=== PATIENT | male | born 1970 | race Caucasian/White ===

== ENCOUNTER 2016-07-24 12:54 | Outpatient (CLI) ==
[2012-12-25 12:03] VITALS: BP 156/91; TEMP 98.8
[2016-03-23 18:59] VITALS: BMI 50.2
[2016-07-24 13:02] LABS: BASOPHILS # (AUTO) 0.1 K/uL (0-0.2); BASOPHILS % (AUTO) 1.2 % (0.0-3.0); EOSINOPHILS # (AUTO) 0.2 K/ul (0.0-0.7); EOSINOPHILS % (AUTO) 3.1 % (0.0-7.0); HEMATOCRIT 37.6 % (42.0-52.0); HEMOGLOBIN 13.1 g/dl (14.0-18.0); IMMATURE GRANULOCYTE % (AUTO) 0.4 % (0.0-5.0); LYMPHOCYTES # (AUTO) 1.7 K/uL (0.60-3.4); MEAN CORPUSCULAR HEMOGLOBIN 27.6 pg (27.0-31.0); MEAN CORPUSCULAR HGB CONC 34.8 (31.8-35.4); MEAN CORPUSCULAR VOLUME 79.2 fl (80.0-94.0); MONOCYTES # (AUTO) 0.6 K/uL (0.4-2.0); MONOCYTES % (AUTO) 8.2 (0-10); NEUTROPHILS # (AUTO) 4.7 K/ul (2.0-6.9); NEUTROPHILS % (AUTO) 64.1; PLATELET COUNT 227 10^3/uL (140-440); RED BLOOD COUNT 4.75 10^6/ul (4.70-6.10); WHITE BLOOD COUNT 7.35 K/ul (4.2-10.2)
[2016-07-24 13:34] LABS: ALBUMIN 3.9 g/dL (3.4-5.0); ALBUMIN/GLOBULIN RATIO 1.18; ANION GAP 13.4; BILIRUBIN,TOTAL 0.46 mg/dL (0.00-1.20); BUN/CREATININE RATIO 8.1; CALCIUM 9.8 mg/dL (8.2-10.2); CREATININE 0.74 mg/dL (0.60-1.10); POTASSIUM 4.4 mmol/L (3.5-5.1); TOTAL PROTEIN 7.2 g/dL (6.4-8.2)
== END 2016-07-24 12:55 | disposition home or self-care (01) ==
LOC: LAB 12:54
PROVIDERS: ATTEND Nurse Practitioner Family
DX: E78.5 Hyperlipidemia, unspecified (principal); J44.9 Chronic obstructive pulmonary disease, unspecified; I10 Essential (primary) hypertension
CPT/HCPCS: 36415; 80053; 80061; 84443; 85025

== ENCOUNTER 2016-07-30 08:53 | Outpatient (CLI) ==
[2012-12-25 12:03] VITALS: BP 156/91; TEMP 98.8
[2016-03-23 18:59] VITALS: BMI 50.2
--- NOTE | 2016-07-30 10:04 | CT ---
EXAM: CT chest with contrast. HISTORY: Tobacco use. Previous right thoracotomy. COMPARISON: 10/20/2015. TECHNIQUE: Multiple axial images of the chest were obtained following intravenous administration of 75 mL of Omnipaque-300, low osmolar. Images were reformatted in the sagittal and coronal planes. FINDINGS: Nonenlarged mediastinal lymph nodes are present, some of which are calcified. No lymphad enopathy identified. Heart size is normal. There is no pericardial effusion. Calcified granulomatous changes are present. Stable right middle lobe scarring noted with multiple old right-sided rib fractures and postsurgical changes of the lateral sixth rib. Linear subpleural density in the left upper lobe on axial image 27 is stable. Left lung is otherwise clear. No pleur al effusion or pneumothorax detected. Limited images of the upper abdomen demonstrate bilateral renal cysts. Degenerative changes present throughout the spine. IMPRESSION: No acute abnormality of the chest. Stable chronic changes of the right thorax.
== END 2016-07-30 08:54 | disposition home or self-care (01) ==
LOC: RAD 08:53
PROVIDERS: ATTEND Nurse Practitioner Family
DX: E87.1 Hypo-osmolality and hyponatremia (principal); Z72.0 Tobacco use
CPT/HCPCS: 36415

== ENCOUNTER 2016-08-15 09:43 | Outpatient (CLI) ==
[2012-12-25 12:03] VITALS: BP 156/91; TEMP 98.8
[2016-03-23 18:59] VITALS: BMI 50.2
[2016-08-15 10:17] LABS: ANION GAP 13.3; BUN/CREATININE RATIO 10.34; CALCIUM 9.6 mg/dL (8.2-10.2); CREATININE 0.87 mg/dL (0.60-1.10); POTASSIUM 4.3 mmol/L (3.5-5.1)
--- NOTE | 2016-08-15 10:40 | CT ---
EXAM: CT head without contrast. HISTORY: Dizziness. Hypo-osmolality. Hyponatremia. COMPARISON: 08/27/2013. TECHNIQUE: Multiple axial images of the brain were obtained from the skull base through the vertex without intravenous contrast. FINDINGS: There is no intracranial hemorrhage or extraaxial collection. The de la torre-white differentia tion is maintained without evidence for acute large vascular territory infarction. Chronic small ve ssel ischemic changes appear stable since prior examination. The cortical sulci and basal cisterns are well visualized. There is no hydrocephalus, mass effect, or midline shift. The paranasal sinus es and mastoid air cells are clear. The calvarium is intact. Disconjugate gaze noted. Since the p rior study, there has been no significant interval change. IMPRESSION: No acute intracranial abnormality.
== END 2016-08-15 09:44 | disposition home or self-care (01) ==
LOC: RAD 09:43
PROVIDERS: ATTEND Nurse Practitioner Family
DX: E87.1 Hypo-osmolality and hyponatremia (principal)
CPT/HCPCS: 36415; 80048

== ENCOUNTER 2016-09-17 12:43 | Inpatient (IN) ==
[2016-09-17 13:33] LABS: BASOPHILS # (AUTO) 0.1 K/uL (0-0.2); BASOPHILS % (AUTO) 0.5 % (0.0-3.0); EOSINOPHILS # (AUTO) 0.4 K/ul (0.0-0.7); EOSINOPHILS % (AUTO) 3.9 % (0.0-7.0); HEMATOCRIT 31.2 % (42.0-52.0); HEMOGLOBIN 10.7 g/dl (14.0-18.0); LYMPHOCYTES # (AUTO) 1.3 K/uL (0.60-3.4); LYMPHOCYTES % (AUTO) 12.5 (10.0-50.0); MEAN CORPUSCULAR HEMOGLOBIN 28.8 pg (27.0-31.0); MEAN CORPUSCULAR HGB CONC 34.3 (31.8-35.4); MEAN CORPUSCULAR VOLUME 83.9 fl (80.0-94.0); MONOCYTES # (AUTO) 1.3 K/uL (0.4-2.0); MONOCYTES % (AUTO) 12.5 (0-10); NEUTROPHILS # (AUTO) 7.3 K/ul (2.0-6.9); NEUTROPHILS % (AUTO) 69.6; PLATELET COUNT 216 10^3/uL (140-440); RED BLOOD COUNT 3.72 10^6/ul (4.70-6.10); WHITE BLOOD COUNT 10.44 K/ul (4.2-10.2)
[2016-09-17] MEDS ORDERED: OXYCODONE HCL PO PRN (13:42)
[2016-09-17] MEDS ORDERED: POLYETHYLENE GLYCOL PO PRN (13:42)
[2016-09-17] MEDS ORDERED: NON-FORMULARY MEDICATION (Albuterol Sulfate [Proair Respiclick] 2 PUFF) IH PRN (13:42)
[2016-09-17] MEDS ORDERED: LASIX TAB PO PRN ×2 (13:42→16:49)
[2016-09-17] MEDS ORDERED: MYCOLOG TP PRN (13:42)
[2016-09-17 13:50] LABS: ALBUMIN 2.9 g/dL (3.4-5.0); ALBUMIN/GLOBULIN RATIO 0.74; ANION GAP 13.6; BILIRUBIN,TOTAL 0.66 mg/dL (0.00-1.20); BUN/CREATININE RATIO 19.51; CALCIUM 9.1 mg/dL (8.2-10.2); CREATININE 0.82 mg/dL (0.60-1.10); POTASSIUM 4.6 mmol/L (3.5-5.1); TOTAL PROTEIN 6.8 g/dL (6.4-8.2)
[2016-09-17] MEDS ORDERED: OXYCODONE PO PRN ×2 (14:13→15:27)
[2016-09-17] MEDS ORDERED: MIRALAX PO PRN (14:27)
[2016-09-17] MEDS ORDERED: NON-FORMULARY MEDICATION (Clonazepam [Clonazepam] 1 MG) PO SCH ×22 (15:00)
[2016-09-17 15:41] VITALS: BMI 51.6
[2016-09-17] MEDS: KLONOPIN PO SCH ×2 (15:50→20:43)
[2016-09-17] MEDS ORDERED: PROAIR HFA IH PRN (16:14)
[2016-09-17] MEDS: ASPIRIN EC PO SCH (17:55)
[2016-09-17] MEDS ORDERED: MILK OF MAGNESIA PO STA (18:13)
[2016-09-17] MEDS: TRILEPTAL PO SCH (20:44)
[2016-09-17] MEDS: SEROQUEL PO SCH (20:45)
[2016-09-17] MEDS ORDERED: OXCARBAZEPINE 900 MG PO SCH (21:00)
[2016-09-17] MEDS ORDERED: NON-FORMULARY MEDICATION (Quetiapine Fumarate [Seroquel] 600 MG) PO SCH (21:00)
[2016-09-17] MEDS ORDERED: NON-FORMULARY MEDICATION (Zolpidem Tartrate [Ambien] 10 MG) PO SCH (21:00)
[2016-09-17] MEDS ORDERED: NON-FORMULARY MEDICATION (Lisinopril [Zestril] 20 MG) PO SCH ×22 (21:00)
[2016-09-17] MEDS ORDERED: AMBIEN PO SCH (21:00)
[2016-09-17] MEDS: OXYCODONE PO PRN (21:18)
[2016-09-18] MEDS: OXYCODONE PO PRN ×4 (05:38→20:40)
[2016-09-18] MEDS ORDERED: DULCOLAX RC STA (08:56)
[2016-09-18] MEDS ORDERED: NON-FORMULARY MEDICATION (Simvastatin [Simvastatin] 20 MG) PO SCH ×22 (09:00)
[2016-09-18] MEDS ORDERED: TIOTROPIUM BROMIDE 2.5 MCG IH SCH (09:00)
[2016-09-18] MEDS ORDERED: NON-FORMULARY MEDICATION (Cholecalciferol (Vitamin D3) [Vitamin D3] 1,000 UNIT) PO SCH ×22 (09:00)
[2016-09-18] MEDS: TIOTROPIUM BROMIDE 5 MCG IH SCH (09:08)
[2016-09-18] MEDS: ATOMOXETINE HCL 80 MG PO SCH ×21 (09:08)
[2016-09-18] MEDS: VITAMIN D PO SCH (09:09)
[2016-09-18] MEDS: ULTRAM PO PRN (09:09)
[2016-09-18] MEDS: ZOCOR PO SCH (09:09)
[2016-09-18] MEDS: ASPIRIN EC PO SCH ×2 (09:10→17:52)
[2016-09-18] MEDS: COLACE PO SCH (09:10)
[2016-09-18] MEDS: ZESTRIL PO SCH ×2 (09:10→20:39)
[2016-09-18] MEDS: TRILEPTAL PO SCH ×2 (09:11→20:38)
--- NOTE | 2016-09-18 09:35 | RS.OTINEVL ---
Subjective - Patient information Date of Evaluation: 09/18/16 Date of Arrival on Unit: 09/17/16 Admitted From:: Facility Transfer Usual Living Arrangement: Alone Living Arrangement Comments: Lives in [address] which is one level. Home Environment: Apartment Medical History: Hypertension, COPD, Arthritis Medical History Comments:: History of back pain Surgical History: Knee Replacement Surgical History Comments:: R TKA Subjective Information/ Patient Comments:: "Oh that hurts so bad." "I did better than I thought I would." - Level of function Prior to this admission, the patient could do the following:: Independent Selfcare, Independent ADL's, Independent Ambulation, Partially Dependent Ambulation, Perform Sequins Slinger/Cooking, Drive, Participated in Social Activities Outside home, Volunteer/Work Abilities prior to this admission: Pt was using a rollator walker. Pt living alone and taking care of himself. Current Level of Function: Partially Dependent Current Equipment Used at Home: rolling walker, rollator walker Pain Assessment - Pain Pain Score: 8 Side: right Pain Location Body Site: Knee Pain Aggravating Factors: ADL's, Changing Position, Exercise/Activity, Standing , Sitting, Walking Pain Alleviating Factors: Ice, Medication, Lying Supine Interventions - Objective Patient Orientation: Person, Place, Time, Situation Current Interventions: IV's, Telemetry Observation: Pt is obese and very demanding. Patient needs moderate encouragement. Interventions - ROM Right Upper Extremity AROM: WFL's Left Upper Extremity AROM: WFL's - Strength Right Upper Extremity Strength: Mild Weakness Left Upper Extremity Strength: Mild Weakness - Sensation Right Upper Extremity Sensation: Intact/Normal Left Upper Extremity Sensation: Intact/Normal Balance - Sitting Balance Static Sitting Balance: Good Dynamic Sitting Balance: Good - Standing Balance Static Standing Balance: Fair Dynamic Standing Balance: Fair - Comments Balance Assessment Comments: Requires extra encouragement. ADL Skills - Self Feeding Self Feeding: Independent - Grooming Grooming: Min Assist - Bathing Bathing UE: Independent Bathing LE: Max Assist - Dressing Dressing UE: Independent, Max Assist Dressing LE: Max Assist, 1 person assist - Toilet Management Toileting Management: Max Assist Functional Mobility - Bed Mobility Rolling R/L: Max Assist Scooting: Mod Assist Supine to Sit: Max Assist Sit to Supine: Max Assist - Transfers Sit to Stand: Min Assist, 2 person assist Stand to Sit: Min Assist, 2 person assist Stand Pivot Transfers: Min Assist, 2 person assist - Ambulation Weight Bearing Status: WBAT Assistive Device Used: Rolling Walker Assistance needed with Ambulation: Mod Assist, 2 person assist - Safety Awareness Safety Awareness: Fair Additional Treatment Performed - Additional units charged ADL: 10 - Time with patient Total treatment time: 30 Activities Patient Interests:: Watching Television, Visiting/Socializing Patient Education Patient Education: Education of diagnosis, Home Exercise Program, Home Safety, Education of Plan of Care Teaching Recipient: Patient Teaching Methods: Discussion Comments: Education regarding using the cold packs to decrease the pain. Pt takes the cold pack off because it hurts. Pt does not understand if you can get the knee cold enough then the pain will decrease. Assessment Problem List:: Decreased level of function, Requires training/education, Decreased safety/Risk of falls, Weakness, Pain limits previous level of function Rehab Potential: Good Further Therapy Indicated?: Yes Short Term Goals - Goals GOAL 1: Pt to increase bed mobility to minimal assist. Goal to be met by: 09/25/16 GOAL 2: Pt to increase activivity tolerance to 15 minutes. Goal to be met by: 09/25/16 GOAL 3: Pt to increase functional transfers for ADLS to CGA Goal to be met by: 09/25/16 Senior Care Goals GOAL 1: Pt to increase Bed mobility to Independent. Goal to be met by: 10/02/16 GOAL 2: Pt to increase activity tolerance 20 minutes with rests PRN. GOAL 3: Pt to be independent with Home exercise program. Goal to be met by: 10/02/16 Plan Plan of Care: Therapeutic EX, Neuromuscular Re-Educ, Therapeutic Activity, Self- Care/Home Management Modalities: Cold Pack/Cryotherapy Frequency of Treatment: 1-2 X day, as tolerated Duration of Treatment: 2 Weeks Anticipated Discharge Destination: Home
[2016-09-18] MEDS: KLONOPIN PO SCH ×3 (09:41→20:39)
[2016-09-18] MEDS: MIRALAX PO SCH (09:42)
--- NOTE | 2016-09-18 10:10 | RS.PTINEVL ---
Subjective - Patient information Date of Evaluation: 09/18/16 Date of Arrival on Unit: 09/17/16 Admitted From:: Facility Transfer Usual Living Arrangement: Alone Living Arrangement Comments: Lives in [address] which is one level. Home Environment: Apartment Medical History: Hypertension, COPD, Arthritis Medical History Comments:: History of back pain Surgical History: Knee Replacement Surgical History Comments:: R TKA Subjective Information/ Patient Comments:: Patient reports significant right knee pain. States he often takes the cold packs off the knee because of the pressure and the burning that feels like he's getting gregorio bite. Reports he needs something on his back for the itching. States red patches on his face are due to psoriasis. Patient states he does not want to expose himself. He would like to put on his boxers. - Level of function Prior to this admission, the patient could do the following:: Independent Selfcare, Independent ADL's, Independent Ambulation, Perform Day Treatment Clinician/Art Therapist/ Cooking, Drive, Participated in Social Activities Outside home Current Level of Function: Partially Dependent Current Equipment Used at Home: rolling walker, rollator walker Pain Assessement - Location Right Knee Joint Description: Burning, Sharp, Aching Pain Behavior: Moaning, Withdrawal from Touch Pain Aggravating Factors: Changing Position, Standing, Sitting, Walking Pain Alleviating Factors: Ice, Position Change Interventions - Objective Patient Orientation: Person, Place, Time, Situation Current Interventions: Telemetry Range of Motion - ROM Right Upper Extremity AROM: WFL's Left Upper Extremity AROM: WFL's Right Lower Extremity AROM: Marked limitation (right knee due to TKA) Left Lower Extremity AROM: WFL's Muscle Strength - Muscle Strength Right Upper Extremity Strength: Normal Left Upper Extremity Strength: Normal Right Lower Extremity Strength: Mild Weakness Left Lower Extremity Strength: Normal Palpation Comments:: Patient reports tenderness throughout the right knee. Right LE is warm to the touch. Balance - Sitting Balance and Reactions Static Sitting Balance: Good Dynamic Sitting Balance: Good - Standing Balance and Reactions Static Standing Balance: Fair Dynamic Standing Balance: Fair Functional Mobility - Bed Mobility Scooting: Mod Assist, 1 person assist Supine to Sit: Mod Assist, 2 person assist, Verbal Cues, Tactile Cues - Transfers Sit to Stand: Mod Assist, 2 person assist, Verbal Cues, Tactile Cues Stand to Sit: Mod Assist, 2 person assist, Verbal Cues, Tactile Cues Comments:: Patient given verbal cues to use at least one UE to push from the bed for sit to stand transfer. Also needs verbal cues to reach back for chair and also extend right knee before sitting down. Reports severe pain after sitting down. - Safety Awareness Safety Awareness: Fair Ambulation - Ambulation Weight Bearing Status: FWB Assistive Device Used: Rolling Walker Distance: 4-6 feet Assistance needed with Ambulation: Mod Assist, 1 person assist, Verbal Cues, Tactile Cues Quality of Ambulation: Patient needs verbal cues for proper gait sequencing with walker and to push down through his arms when advancing the left LE. Gait Deviations: Step-to gait, Forward posture, Short stride, Lacks step continuity Factors Affecting Ambulation: Pain, Decreased ROM, Decreased Safety, Limited Endurance Treatment time - Time with patient Total treatment time: 24 (mins) Assessment - Assessment Problem List:: Decreased level of function, Requires training/education, Decreased safety/Risk of falls, Pain limits previous level of function Rehab Potential: Good Further Therapy Indicated?: Yes Short Term Goals GOAL #1: Supine to sit with minimal assistance for right LE. Goal to be met by: 09/23/16 GOAL #2: Sit to stand with min X 1 and consistent use of UE's to push from seat. Goal to be met by: 09/23/16 GOAL #3: Pt to amb. 60 feet with RW w/ min. of one with proper gait sequence. Goal to be met by: 09/23/16 Nursing Home Goals GOAL #1: All bed mobility independent. Goal to be met by: 10/02/16 GOAL #2: Transfers independently with good safety. Goal to be met by: 10/02/16 GOAL #3: Amb. with RW household distances, independently with good safety. Goal to be met by: 10/02/16 Plan Plan of Care: Therapeutic EX, Neuromuscular Re-Educ, Therapeutic Activity, Self- Care/Home Management Modalities: Cold Pack/Cryotherapy Frequency of Treatment: 1-2 X day, as tolerated Duration of Treatment: 2 Weeks Anticipated Discharge Destination: Home
--- NOTE | 2016-09-18 13:57 | HP ---
DATE OF SERVICE: 09/17/16 REASON FOR HOSPITALIZATION/HISTORY OF PRESENT ILLNESS: The patient is a 46 year old male with multiple medical problems and who was electively had a right total knee replacement by Dr. Valle at [facility] on September 13, 2016. After that the patient was complicated with the hyponatremia which was corrected. He was able to weight bare and start walking with physical therapy. As patient was needing residential physical therapy the patient was transferred to the [facility] for the transitional care unit. As of now the patient is lying in the bed and complaints about the pain and did not have bowel movement since the hospitalization on the 09/13/16. The patient is 8 out of 10, sharp shooting type of pain. REVIEW OF SYSTEMS: CONSTITUTIONAL: No night sweats. No fatigue, malaise, lethargy. No fever or chills. HEENT: Eyes: No visual changes. No eye pain. No eye discharge. ENT: No runny nose. No epistaxis. No sinus pain. No sore throat. No odynophagia. No ear pain. No congestion. RESPIRATORY: No cough, no congestion. No hemoptysis. CARDIOVASCULAR: No angina symptoms. No CHF symptoms. No atypical chest pain for CAD. No palpitations. No shortness of breath. No PND. No orthopnea. GASTROINTESTINAL: No abdominal pain. No nausea or vomiting. Constipation. No hematemesis. No hematochezia. GENITOURINARY: No urgency. No frequency. No dysuria. No hematuria. No obstructive symptoms. No discharge. No pain. No significant abnormal bleeding. MUSCULOSKELETAL: No musculoskeletal pain. No joint swelling. No arthritis. Right knee and leg pain. NEUROLOGICAL: No headache. No neck pain. No syncope. No seizures. No dizziness. PSYCHIATRIC: Not anxious. No depression. No suicidal thoughts. No homicidal thoughts. SKIN: No rash. No lesions. No wounds. ENDOCRINE: No unexplained weight loss. No weight gain. HEMATOLOGIC/LYMPHATIC: No anemia. No purpura. No petechiae. No prolonged or excessive bleeding. No palpable lymph nodes. PERSONAL/FAMILY/SOCIAL HISTORY: Mother had brain aneurysm. Father Pick's disease and Sister brain aneurysm. Been smoking cigarettes; 35 pack year. Alcohol occasionally. No drugs. PAST MEDICAL: Anxiety Arthritis; knees, back and leg Chronic neck pain Chronic pain syndrome COPD Depression GERD Hyperlipidemia Hypertension Lumbar disc displacement without myelopathy Peripheral edema Schizoaffective disorder Seizure disorder occurred in the youth Sleep apnea on CPAP PAST SURGICAL HISTORY: Thoracotomy 2008 on right side Cholecystectomy, 2004 Hernia repair Carpel Tunnel release left side Knee cartilage surgery, 04/10/16 Right side Knee arthroscopy on the right side Tonsillectomy Total knee replacement 09/13/16 MEDICATIONS: Oxycodone Ambien Strattera Seroquel Spiriva ProAir Trileptal Cholecalciferol Zestril Zocor Lasix ALLERGIES: Sulfa medication PHYSICAL EXAMINATION: GENERAL: The patient is oriented to time, place and person. VITAL SIGNS: Blood pressure 150/66, respiratory rate 18, heart rate 96 and saturation 94% on the room air. HEENT: Head normocephalic, atraumatic. Eyes: Extraocular muscles are intact. Pupils are equal, round and reactive to light and accommodation. Ears: No lesions. Nose appeared normal. Throat: No exudate or erythema. Mucosa dry. Pallor positive. NECK: Supple. No JVD, no carotid bruit. No lymphadenopathy or thyromegaly. LUNGS: Decreased entry and clear to auscultation. Percussion note normal. Chest symmetrical. HEART: S1, S2, no S3. No murmurs. No cyanosis or clubbing. No ascites. Pulses: Dorsalis pedis and posterior tibial pulses +1 to +2 both sides. ABDOMEN: Soft. Nontender. Bowel sounds active. No CVA tenderness. No mass felt. EXTREMITIES: No edema. Full range of motion of all extremities, equal. Right knee surgical site swollen, healthy granulation tissue, swollen calf and tender to touch. NEUROLOGIC: No focal deficit. Cranial nerves II through XII are grossly intact. No headache, no double vision or headache. SKIN: Not dry. Intact. Turgor - normal. LYMPHATIC: No palpable lymph nodes/no lymphedema. MUSCULOSKELETAL: Normal joints with no swelling. Muscle tone is normal. LABS: WBC 10.44, hgb 10.7, hct 31.2, plt count 216, sodium 129, potassium 4.6, chloride 92, bicarb 28, BUN 16 and creatinine 0.82. ASSESSMENT: 1. Right total knee replacement, elective by Dr. Valle on 09/13/16 2. History of hypertension 3. Dyslipidemia 4. Hypernatremia, stable 5. Anemia, post operative 6. Depression 7. Anxiety 8. Schizophrenia 9. Sleep apnea on CPAP 10.Chronic pain syndrome PLAN: 1. Admit patient to the TCU care 2. CBC and CMP every other day 3. Diet regular 4. Activity as much as tolerated 5. PT/OT evaluate and treat. 6. Aspirin for the DVT prophylaxis 7. Continue the Medication Zocor, Ultram, Ambien, Oxycodone, Trileptal, Simvastatin, Magnesium, Lisinopril, Lasix PRN, Docusate, Miralax and Klonopin three times a day. TIME SPENT: MORE THAN 55 MINUTES. MTDD
--- NOTE | 2016-09-18 14:58 | US ---
EXAM: ULTRASOUND LOWER EXTREMITY VENOUS DOPPLER EXAM HISTORY: Leg swelling and tenderness, right side. FINDDINGS: Right lower extremity venous Doppler exam. Real time de la torre-scale, Doppler spectral analys is and color-flow Doppler imaging performed. The veins targeted for evaluation include the common f emoral, greater saphenous, profundus, femoral, popliteal, peroneal, anterior tibial and posterior ti bial. The evaluated veins demonstrated normal spontaneous flow and compression without evidence of thrombosis. IMPRESSION: No venous thrombosis identified within the areas evaluated.
[2016-09-18] MEDS: SEROQUEL PO SCH (20:38)
[2016-09-18] MEDS: AMBIEN PO SCH (20:39)
[2016-09-19] MEDS: OXYCODONE PO PRN ×5 (05:41→22:04)
[2016-09-19 06:27] LABS: BASOPHILS # (AUTO) 0.1 K/uL (0-0.2); BASOPHILS % (AUTO) 0.6 % (0.0-3.0); EOSINOPHILS # (AUTO) 0.5 K/ul (0.0-0.7); EOSINOPHILS % (AUTO) 4.9 % (0.0-7.0); HEMATOCRIT 28.4 % (42.0-52.0); HEMOGLOBIN 10.1 g/dl (14.0-18.0); IMMATURE GRANULOCYTE % (AUTO) 2.1 % (0.0-5.0); LYMPHOCYTES # (AUTO) 1.4 K/uL (0.60-3.4); LYMPHOCYTES % (AUTO) 12.6 (10.0-50.0); MEAN CORPUSCULAR HEMOGLOBIN 28.7 pg (27.0-31.0); MEAN CORPUSCULAR HGB CONC 35.6 (31.8-35.4); MEAN CORPUSCULAR VOLUME 80.7 fl (80.0-94.0); MONOCYTES # (AUTO) 1.5 K/uL (0.4-2.0); MONOCYTES % (AUTO) 14.3 (0-10); NEUTROPHILS % (AUTO) 65.5; PLATELET COUNT 229 10^3/uL (140-440); RED BLOOD COUNT 3.52 10^6/ul (4.70-6.10)
[2016-09-19 06:47] LABS: ALBUMIN 2.7 g/dL (3.4-5.0); ALBUMIN/GLOBULIN RATIO 0.71; ANION GAP 11.9; BILIRUBIN,TOTAL 0.88 mg/dL (0.00-1.20); BUN/CREATININE RATIO 17.8; CALCIUM 9.2 mg/dL (8.2-10.2); CREATININE 0.73 mg/dL (0.60-1.10); POTASSIUM 3.9 mmol/L (3.5-5.1); TOTAL PROTEIN 6.5 g/dL (6.4-8.2)
[2016-09-19] MEDS: ASPIRIN EC PO SCH ×2 (08:52→17:08)
[2016-09-19] MEDS: TIOTROPIUM BROMIDE 5 MCG IH SCH (08:52)
[2016-09-19] MEDS: COLACE PO SCH (08:53)
[2016-09-19] MEDS: KLONOPIN PO SCH ×3 (08:53→21:24)
[2016-09-19] MEDS: ATOMOXETINE HCL 80 MG PO SCH ×21 (08:53)
[2016-09-19] MEDS: MIRALAX PO SCH (08:54)
[2016-09-19] MEDS: VITAMIN D PO SCH (08:55)
[2016-09-19] MEDS: ZOCOR PO SCH (08:55)
[2016-09-19] MEDS: ZESTRIL PO SCH ×2 (08:55→21:23)
[2016-09-19] MEDS: TRILEPTAL PO SCH ×2 (08:55→21:25)
[2016-09-19] MEDS: AMBIEN PO SCH (21:24)
[2016-09-19] MEDS: SEROQUEL PO SCH (21:26)
[2016-09-20] MEDS: TRILEPTAL PO SCH ×2 (08:48→20:30)
[2016-09-20] MEDS: ATOMOXETINE HCL 80 MG PO SCH ×21 (08:48)
[2016-09-20] MEDS: TIOTROPIUM BROMIDE 5 MCG IH SCH (08:48)
[2016-09-20] MEDS: ZOCOR PO SCH (08:49)
[2016-09-20] MEDS: VITAMIN D PO SCH (08:49)
[2016-09-20] MEDS: COLACE PO SCH (08:49)
[2016-09-20] MEDS: ASPIRIN EC PO SCH ×2 (08:49→16:32)
[2016-09-20] MEDS: ZESTRIL PO SCH ×2 (08:49→20:30)
[2016-09-20] MEDS: MIRALAX PO SCH (08:53)
[2016-09-20] MEDS: OXYCODONE PO PRN ×4 (09:01→22:26)
[2016-09-20] MEDS: KLONOPIN PO SCH ×3 (09:07→20:31)
--- NOTE | 2016-09-20 13:04 | PN ---
DATE OF SERVICE: 09/20/16 SUBJECTIVE: The patient was admitted for the swing bed after right knee replacement. Participating in the physical therapy fine. Still has some fine, has not had any bowel movement. REVIEW OF SYSTEMS: CONSTITUTIONAL: No fever, no chills. HEENT: Normal. ENDOCRINE: No weight gain, no weight loss. CVS: No angina symptoms. No CHF symptoms. No palpitations. No atypical chest pain for CAD. No shortness of breath. No PND, no orthopnea. RESPIRATORY: No cough, no hemoptysis. GI: No nausea, no vomiting. No abdominal pain. : No hematuria. No polyuria. MUSCULOSKELETAL:. No joint swelling. PSYCHIATRIC: Not anxious. No depression. No suicidal thoughts. No homicidal thoughts. SKIN: Intact. No rash. PHYSICAL EXAMINATION: V/S: Blood pressure 130/72, respiratory rate 20, heart rate 87, temperature 97.1. HEENT: Normocephalic, atraumatic. Ears, eyes, nose and throat normal. Mucosa dry. Pallor positive. No icterus. NECK: Supple. No JVD, no carotid bruit. No lymphadenopathy. LUNGS: Clear to auscultation. No rales or rhonchi. HEART: S1, S2 normal. No S3. No murmur, gallop or regurgitation. ABDOMEN: Soft, nontender. Bowel sounds active. No rigidity. No rebound or guarding. No CVA tenderness. EXTREMITIES: No clubbing, cyanosis or pedal edema. Right knee surgical site looks healthy and healthy granulation tissue. MUSCULOSKELETAL: No joint swelling. NEUROLOGIC: Awake, alert, oriented times three. No focal deficit. LYMPHATIC: No lymph nodes palpable. SKIN: Intact. LABS: WBC 10.70, hgb 10.1, hct 28.4, plt count 229, sodium 121, potassium 3.9, chloride 87, bicarb 26, BUN 13 and creatinine 0.73. ASSESSMENT: 1. Status post right knee replacement 2. Post surgical anemia 3. Hyponatremia secondary to the medication 4. History fo hypertension 5. Diabetes 6. Hypertension 7. Dyslipidemia 8. Obesity 9. Sleep apnea PLAN: 1. Will stop the Lasix 2. Continue PT/OT evaluation 3. Fall precautions Will follow the patient in daily rounds. Most likely the patient is going to get enema as he refused yesterday and he was OK to give enema today for the constipation. TIME SPENT: More than 30 minutes MTDD
[2016-09-20] MEDS ORDERED: MILK OF MAGNESIA PO PRN (15:05)
[2016-09-20] MEDS: AMBIEN PO SCH (20:30)
[2016-09-20] MEDS: SEROQUEL PO SCH (20:31)
[2016-09-20] MEDS: ULTRAM PO PRN (20:36)
[2016-09-21] MEDS: OXYCODONE PO PRN ×3 (05:35→15:14)
[2016-09-21 06:10] LABS: BASOPHILS # (AUTO) 0.1 K/uL (0-0.2); BASOPHILS % (AUTO) 0.7 % (0.0-3.0); EOSINOPHILS # (AUTO) 0.6 K/ul (0.0-0.7); EOSINOPHILS % (AUTO) 4.3 % (0.0-7.0); HEMATOCRIT 29.6 % (42.0-52.0); HEMOGLOBIN 10.2 g/dl (14.0-18.0); IMMATURE GRANULOCYTE % (AUTO) 3.8 % (0.0-5.0); LYMPHOCYTES # (AUTO) 1.4 K/uL (0.60-3.4); MEAN CORPUSCULAR HEMOGLOBIN 28.5 pg (27.0-31.0); MEAN CORPUSCULAR HGB CONC 34.5 (31.8-35.4); MEAN CORPUSCULAR VOLUME 82.7 fl (80.0-94.0); MONOCYTES # (AUTO) 1.7 K/uL (0.4-2.0); MONOCYTES % (AUTO) 13.1 (0-10); NEUTROPHILS # (AUTO) 8.7 K/ul (2.0-6.9); NEUTROPHILS % (AUTO) 67.1; PLATELET COUNT 280 10^3/uL (140-440); RED BLOOD COUNT 3.58 10^6/ul (4.70-6.10); WHITE BLOOD COUNT 12.91 K/ul (4.2-10.2)
[2016-09-21 06:31] LABS: ALBUMIN 2.9 g/dL (3.4-5.0); ALBUMIN/GLOBULIN RATIO 0.74; ANION GAP 12.8; BILIRUBIN,TOTAL 0.65 mg/dL (0.00-1.20); BUN/CREATININE RATIO 16.86; CALCIUM 9.4 mg/dL (8.2-10.2); CREATININE 0.83 mg/dL (0.60-1.10); POTASSIUM 4.8 mmol/L (3.5-5.1); TOTAL PROTEIN 6.8 g/dL (6.4-8.2)
[2016-09-21] MEDS: ASPIRIN EC PO SCH ×2 (08:43→17:10)
[2016-09-21] MEDS: TRILEPTAL PO SCH ×2 (08:43→20:27)
[2016-09-21] MEDS: ZESTRIL PO SCH ×2 (08:43→20:28)
[2016-09-21] MEDS: ZOCOR PO SCH (08:44)
[2016-09-21] MEDS: COLACE PO SCH (08:44)
[2016-09-21] MEDS: MIRALAX PO SCH (08:44)
[2016-09-21] MEDS: VITAMIN D PO SCH (08:44)
[2016-09-21] MEDS ORDERED: CITRATE OF MAGNESIA PO STA (08:52)
[2016-09-21] MEDS ORDERED: DULCOLAX RC PRN (08:53)
[2016-09-21] MEDS: KLONOPIN PO SCH ×3 (08:55→20:27)
[2016-09-21] MEDS: ATOMOXETINE HCL 80 MG PO SCH ×21 (08:55)
[2016-09-21] MEDS: TIOTROPIUM BROMIDE 5 MCG IH SCH (08:56)
[2016-09-21] MEDS: AMBIEN PO SCH (20:28)
[2016-09-21] MEDS: SEROQUEL PO SCH (20:28)
[2016-09-22] MEDS: OXYCODONE PO PRN ×4 (06:48→21:52)
[2016-09-22] MEDS: ASPIRIN EC PO SCH ×2 (07:48→16:31)
[2016-09-22] MEDS: TRILEPTAL PO SCH ×2 (08:39→20:37)
[2016-09-22] MEDS: ZESTRIL PO SCH ×2 (08:42→20:38)
[2016-09-22] MEDS: VITAMIN D PO SCH (08:43)
[2016-09-22] MEDS: KLONOPIN PO SCH ×3 (08:43→20:38)
[2016-09-22] MEDS: COLACE PO SCH (08:43)
[2016-09-22] MEDS: ZOCOR PO SCH (08:43)
[2016-09-22] MEDS: TIOTROPIUM BROMIDE 5 MCG IH SCH ×2 (08:46→08:53)
[2016-09-22] MEDS: ATOMOXETINE HCL 80 MG PO SCH ×21 (08:46)
[2016-09-22] MEDS: MIRALAX PO SCH (08:47)
[2016-09-22] MEDS: NON-FORMULARY MEDICATION (Umeclidinium Bromide [Incruse Ellipta] 62.5 MCG) INH SCH (11:06)
[2016-09-22] MEDS: SEROQUEL PO SCH (20:37)
[2016-09-22] MEDS: AMBIEN PO SCH (20:39)
[2016-09-23 07:50] LABS: BASOPHILS # (AUTO) 0.1 K/uL (0-0.2); BASOPHILS % (AUTO) 0.6 % (0.0-3.0); EOSINOPHILS # (AUTO) 0.5 K/ul (0.0-0.7); EOSINOPHILS % (AUTO) 4.7 % (0.0-7.0); HEMATOCRIT 28.3 % (42.0-52.0); HEMOGLOBIN 9.7 g/dl (14.0-18.0); IMMATURE GRANULOCYTE % (AUTO) 4.2 % (0.0-5.0); LYMPHOCYTES # (AUTO) 1.9 K/uL (0.60-3.4); LYMPHOCYTES % (AUTO) 16.9 (10.0-50.0); MEAN CORPUSCULAR HEMOGLOBIN 28.5 pg (27.0-31.0); MEAN CORPUSCULAR HGB CONC 34.3 (31.8-35.4); MEAN CORPUSCULAR VOLUME 83.2 fl (80.0-94.0); MONOCYTES # (AUTO) 1.2 K/uL (0.4-2.0); MONOCYTES % (AUTO) 10.3 (0-10); NEUTROPHILS # (AUTO) 7.1 K/ul (2.0-6.9); NEUTROPHILS % (AUTO) 63.3; PLATELET COUNT 281 10^3/uL (140-440); WHITE BLOOD COUNT 11.18 K/ul (4.2-10.2)
[2016-09-23 08:12] LABS: ALBUMIN 2.8 g/dL (3.4-5.0); ALBUMIN/GLOBULIN RATIO 0.8; ANION GAP 10.7; BILIRUBIN,TOTAL 0.38 mg/dL (0.00-1.20); BUN/CREATININE RATIO 13.51; CREATININE 0.74 mg/dL (0.60-1.10); POTASSIUM 4.7 mmol/L (3.5-5.1); TOTAL PROTEIN 6.3 g/dL (6.4-8.2)
[2016-09-23] MEDS: OXYCODONE PO PRN ×3 (08:17→20:33)
[2016-09-23] MEDS: ASPIRIN EC PO SCH ×2 (09:26→17:28)
[2016-09-23] MEDS: ATOMOXETINE HCL 80 MG PO SCH ×21 (09:26)
[2016-09-23] MEDS: COLACE PO SCH (09:27)
[2016-09-23] MEDS: KLONOPIN PO SCH ×3 (09:27→20:32)
[2016-09-23] MEDS: MIRALAX PO SCH (09:28)
[2016-09-23] MEDS: TRILEPTAL PO SCH ×2 (09:30→20:32)
[2016-09-23] MEDS: VITAMIN D PO SCH (09:32)
[2016-09-23] MEDS: ZESTRIL PO SCH ×2 (09:32→20:32)
[2016-09-23] MEDS: ZOCOR PO SCH (09:32)
[2016-09-23] MEDS: NON-FORMULARY MEDICATION (Umeclidinium Bromide [Incruse Ellipta] 62.5 MCG) INH SCH (09:35)
[2016-09-23] MEDS ORDERED: DULCOLAX RC STA (17:02)
[2016-09-23] MEDS: SEROQUEL PO SCH (20:33)
[2016-09-23] MEDS: AMBIEN PO SCH (20:33)
[2016-09-24] MEDS: OXYCODONE PO PRN ×4 (02:17→20:43)
[2016-09-24] MEDS: ULTRAM PO PRN (05:26)
[2016-09-24] MEDS: TRILEPTAL PO SCH ×2 (09:03→20:41)
[2016-09-24] MEDS: MIRALAX PO SCH (09:03)
[2016-09-24] MEDS: ZESTRIL PO SCH ×2 (09:04→20:40)
[2016-09-24] MEDS: ZOCOR PO SCH (09:04)
[2016-09-24] MEDS: VITAMIN D PO SCH (09:04)
[2016-09-24] MEDS: COLACE PO SCH (09:04)
[2016-09-24] MEDS: NON-FORMULARY MEDICATION (Umeclidinium Bromide [Incruse Ellipta] 62.5 MCG) INH SCH (09:05)
[2016-09-24] MEDS: ASPIRIN EC PO SCH ×2 (09:05→16:38)
[2016-09-24] MEDS: ATOMOXETINE HCL 80 MG PO SCH ×21 (09:05)
[2016-09-24] MEDS: KLONOPIN PO SCH ×3 (09:11→20:43)
--- NOTE | 2016-09-24 10:03 | PCM.PROG ---
Attending Provider: ATTENDING PROVIDER: Dr. ROD LANDRY DATE OF SERVICE: 09/24/16 SUBJECTIVE: This 46 year old WHITE/ M was hospitalized 09/17/16. The patient is ambulating well. He has been getting Miralax. A Dulcolax suppository was given yesterday. The patient had a small bowel movement today. No abdominal pain, no nausea or vomiting. The patient has right knee pain with ambulation. REVIEW OF SYSTEMS: CONSTITUTIONAL: No fever, no chills. ENDOCRINE: No weight loss or weight gain. HEENT: No sinus drainage, no sore throat. CVS: No angina symptoms. No CHF symptoms. No palpitations. No atypical chest pain for CAD. No shortness of breath. RESPIRATORY: No cough, no hemoptysis. GI: No melena. No abdominal pain. No nausea, no vomiting. : No hematuria. No polyuria. SKIN: Redness surgical site right knee, healthy looking. MUSCULOSKELETAL: Right knee pain. CAMPAIGN ASSOCIATE: No blackout, no dizziness. No headache. No double vision. PSYCHIATRIC: Not anxious; no depression. No suicidal thoughts. No homicidal thoughts. PHYSICAL EXAMINATION: GENERAL: Lying in bed in no distress. VITAL SIGNS: Temperature 97.2 F, Pulse 78, Respiratory Rate 18, BP 119/67, Pulse Ox 99% HEENT: Normocephalic, atraumatic. Mucosa is dry, pallor positive. NECK: No JVP, no carotid bruit. No lymphadenopathy. CARDIAC: S1, S2, no S3. No murmur, gallop or regurgitation. LUNGS: Clear to auscultation. ABDOMEN: Soft, non-tender. Bowel sounds active. No rigidity, guarding or CVA tenderness. EXTREMITIES: Right knee swelling with redness of the surgical site but is healthy looking. 1+ edema in legs bilaterall. No clubbing, no cyanosis. NEUROLOGIC: Awake, alert and oriented x3. LYMPHATIC: No palpable lymph nodes SKIN: Not dry. Intact. MUSCULOSKELETAL: No joint swelling. LAB REVIEW: 09/23/16 07:15 09/23/16 07:15 ASSESSMENT: 1. Constipation, resolved. 2. Status post right knee replacement. 3. Post surgical anemia. 4. Hyponatremia secondary to medication. 5. History of hypertension. 6. Diabetes. 7. Hypertension. 8. Dyslipidemia. 9. Obesity. 10. Sleep apnea. PLAN: 1. Discharge the patient home. 2. Continue follow-up with orthopaedic surgeon as scheduled. 3. Pain medication and its side effects have been discussed with the patient multiple times. 4. Followup at the [facility] in one week. Plan and coordination of the patient's care discussed in the presence of Military Technician and nurse. CONDITION: Stable SCRIBED BY: CATHY MERLOS Sludge Control Operator scribed while in presence of service performed by Dr. ROD LANDRY on 09/24/16 ([id number])
--- NOTE | 2016-09-24 11:41 | DI ---
EXAM: Single view the abdomen. History: Constipation. Comparison: Abdominal radiograph 10/05/2013 Findings: Nonspecific bowel gas pattern. Cholecystectomy clips. No gross free intraperitoneal air . No acute osseous abnormalities. A large amount of colonic stool is seen especially within the as cending and transverse colon with significant colonic distension, especially at the hepatic flexure. Impression: Large amount colonic stool distending portions of the colon especially the hepatic flex ure.
[2016-09-24] MEDS ORDERED: [UNRECOGNIZED DRUG - OTHER] PO ONE (12:20)
--- NOTE | 2016-09-24 14:58 | PN ---
DATE OF SERVICE: 09/21/16 SUBJECTIVE: The patient was admitted with the right sided knee replacement. Has small bowel movements. The patient has been given a rectal suppository today. Not in any distress. REVIEW OF SYSTEMS: CONSTITUTIONAL: No fever, no chills. HEENT: Normal. ENDOCRINE: No weight gain, no weight loss. CVS: No angina symptoms. No CHF symptoms. No palpitations. No atypical chest pain for CAD. No shortness of breath. No PND, no orthopnea. RESPIRATORY: No cough, no hemoptysis. GI: No nausea, no vomiting. No abdominal pain. : No hematuria. No polyuria. MUSCULOSKELETAL:. No joint swelling. PSYCHIATRIC: Not anxious. No depression. No suicidal thoughts. No homicidal thoughts. SKIN: Intact. No rash. PHYSICAL EXAMINATION: V/S: Blood pressure 130/81, respiratory rate 18, heart rate 83 and temperature 97.0. HEENT: Normocephalic, atraumatic. Ears, eyes, nose and throat normal. Pallor positive. No icterus. NECK: Supple. No JVD, no carotid bruit. No lymphadenopathy. LUNGS: Clear to auscultation. No rales or rhonchi. HEART: S1, S2 normal. No S3. No murmur, gallop or regurgitation. ABDOMEN: Soft, nontender. Bowel sounds active. No rigidity. No rebound or guarding. No CVA tenderness. EXTREMITIES: No clubbing, cyanosis. Bilateral edema is in the lower extremity. Right knee healthy, healthy granulation tissue, no drainage and screw machine tender to touch. MUSCULOSKELETAL: No joint swelling. NEUROLOGIC: Awake, alert, oriented times three. No focal deficit. LYMPHATIC: No lymph nodes palpable. SKIN: Intact. LABS: WBC 11.18, hgb 9.7, hct 28.3, plt count 218, sodium 124, potassium 4.7, chloride 89, bicarb 29, BUN 10 and creatinine 0.74. ASSESSMENT: 1. Status post right knee replacement 2. Anemia, post surgical 3. Hyponatremia secondary to the medication reaction 4. Depression 5. Anxiety 6. Schizophrenia 7. Obesity PLAN: 1. Continue physical therapy and occupational therapy 2. Dulcolax 3. KUB 4. Out of bed to chair activity as tolerated. TIME SPENT: More than 30 minutes MTDD
[2016-09-24] MEDS: AMBIEN PO SCH (20:40)
[2016-09-24] MEDS: SEROQUEL PO SCH (20:43)
[2016-09-25] MEDS: OXYCODONE PO PRN ×3 (02:35→10:51)
[2016-09-25 05:13] LABS: BASOPHILS # (AUTO) 0.1 K/uL (0-0.2); BASOPHILS % (AUTO) 0.7 % (0.0-3.0); EOSINOPHILS # (AUTO) 0.6 K/ul (0.0-0.7); EOSINOPHILS % (AUTO) 4.4 % (0.0-7.0); HEMATOCRIT 27.6 % (42.0-52.0); HEMOGLOBIN 9.2 g/dl (14.0-18.0); IMMATURE GRANULOCYTE % (AUTO) 4.7 % (0.0-5.0); LYMPHOCYTES # (AUTO) 2.7 K/uL (0.60-3.4); LYMPHOCYTES % (AUTO) 21.3 (10.0-50.0); MEAN CORPUSCULAR HEMOGLOBIN 28.4 pg (27.0-31.0); MEAN CORPUSCULAR HGB CONC 33.3 (31.8-35.4); MEAN CORPUSCULAR VOLUME 85.2 fl (80.0-94.0); MONOCYTES # (AUTO) 1.3 K/uL (0.4-2.0); NEUTROPHILS # (AUTO) 7.4 K/ul (2.0-6.9); NEUTROPHILS % (AUTO) 58.9; PLATELET COUNT 329 10^3/uL (140-440); RED BLOOD COUNT 3.24 10^6/ul (4.70-6.10); WHITE BLOOD COUNT 12.51 K/ul (4.2-10.2)
[2016-09-25 05:34] LABS: ALBUMIN 2.8 g/dL (3.4-5.0); ALBUMIN/GLOBULIN RATIO 0.9; ANION GAP 12.5; BILIRUBIN,TOTAL 0.39 mg/dL (0.00-1.20); BUN/CREATININE RATIO 17.97; CALCIUM 9.1 mg/dL (8.2-10.2); CREATININE 0.89 mg/dL (0.60-1.10); POTASSIUM 4.5 mmol/L (3.5-5.1); TOTAL PROTEIN 5.9 g/dL (6.4-8.2)
[2016-09-25 05:46] VITALS: BP 92/56; TEMP 97
[2016-09-25] MEDS: ASPIRIN EC PO SCH (09:39)
[2016-09-25] MEDS: ATOMOXETINE HCL 80 MG PO SCH ×21 (09:40)
[2016-09-25] MEDS: COLACE PO SCH (09:40)
[2016-09-25] MEDS: MIRALAX PO SCH (09:41)
[2016-09-25] MEDS: KLONOPIN PO SCH (09:41)
[2016-09-25] MEDS: TRILEPTAL PO SCH (09:42)
[2016-09-25] MEDS: NON-FORMULARY MEDICATION (Umeclidinium Bromide [Incruse Ellipta] 62.5 MCG) INH SCH (09:43)
[2016-09-25] MEDS: VITAMIN D PO SCH (09:43)
[2016-09-25] MEDS: ZOCOR PO SCH (09:44)
[2016-09-25] MEDS: ZESTRIL PO SCH (09:44)
--- NOTE | 2016-09-25 11:51 | PCM.PROG ---
Attending Provider: ATTENDING PROVIDER: Dr. ROD LANDRY DATE OF SERVICE: 09/25/16 SUBJECTIVE: This 46 year old WHITE/ M was hospitalized 09/17/16. The patient's constipation has resolved, had a good bowel movement. He is ready to go home. Right knee surgical site healthy, no oozing. Edema in right leg is more than left. Discussed discharge with the patient and he is ready to go home. REVIEW OF SYSTEMS: CONSTITUTIONAL: No fever, no chills. ENDOCRINE: No weight loss or weight gain. HEENT: No sinus drainage, no sore throat. CVS: No angina symptoms. No CHF symptoms. No palpitations. No atypical chest pain for CAD. No shortness of breath. RESPIRATORY: No cough, no hemoptysis. GI: No melena. No abdominal pain. No nausea, no vomiting. : No hematuria. No polyuria. SKIN: No rash. Right knee surgical site is healthy looking. MUSCULOSKELETAL: No pain. PATTERN FILER: No blackout, no dizziness. No headache. No double vision. PSYCHIATRIC: Not anxious; no depression. No suicidal thoughts. No homicidal thoughts. PHYSICAL EXAMINATION: GENERAL: Sitting in chair in no distress. VITAL SIGNS: Temperature 97.0 F, Pulse 66, Respiratory Rate 20, BP 92/56, Pulse Ox 96% HEENT: Normocephalic, atraumatic. Mucosa is dry, pallor positive. NECK: No JVP, no carotid bruit. No lymphadenopathy. CARDIAC: S1, S2, no S3. No murmur, gallop or regurgitation. LUNGS: Clear to auscultation. ABDOMEN: Soft, non-tender. Bowel sounds active. No rigidity, guarding or CVA tenderness. EXTREMITIES: No clubbing, cyanosis or edema. Surgical site on right knee, no oozing. NEUROLOGIC: Awake, alert and oriented x3. LYMPHATIC: No palpable lymph nodes SKIN: Not dry. Intact. MUSCULOSKELETAL: No joint swelling. LAB REVIEW: 09/25/16 05:00 09/25/16 05:00 09/25/16 05:00: WBC 12.51 H, RBC 3.24 L, Hgb 9.2 L, Hct 27.6 L, MCV 85.2, MCH 28.4, MCHC 33.3, RDW Coeff of Mackenzie 12.7, Plt Count 329, Immature Gran % (Auto) 4.7, Neut % (Auto) 58.9, Lymph % (Auto) 21.3, Emanuel % (Auto) 10.0, Eos % (Auto) 4.4, Baso % (Auto) 0.7, Immature Gran # (Auto) 0.6, Neut # 7.4 H, Lymph # 2.7, Emanuel # 1.3, Eos # 0.6, Baso # 0.1, Sodium 128 L, Potassium 4.5, Chloride 89 L, Carbon Dioxide 31, Anion Gap 12.5, BUN 16, Creatinine 0.89, Estimated GFR (MDRD ) 91.00, BUN/Creatinine Ratio 17.97, Glucose 94, Calcium 9.1, Total Bilirubin 0.39, AST 21, ALT 31, Alkaline Phosphatase 88, Total Protein 5.9 L, Albumin 2.8 L, Globulin 3.1, Albumin/Globulin Ratio 0.90 ASSESSMENT: 1. Constipation, resolved. 2. Status post right knee replacement. 3. Post surgical anemia. 4. Hyponatremia secondary to medication. 5. History of hypertension. 6. Diabetes. 7. Hypertension. 8. Dyslipidemia. 9. Obesity. 10. Sleep apnea. 11. Depression 12. Schizophrenia PLAN: 1. Discharge home 2. The patient will followup in the clinic as well as with Orthopaedic M.D. 3. Lifestyle modifications discussed with the patient to include diet, weight loss. He voiced understanding and is in agreement. Plan and coordination of the patient's care discussed in the presence of Mechanical Facilities Technician and nurse. CONDITION: Stable SCRIBED BY: CATHY MERLOS, Rod Filler scribed while in presence of service performed by Dr. ROD LANDRY on 09/25/16 ([id number])
--- NOTE | 2016-10-09 11:46 | DS ---
DATE OF SERVICE: 09/25/16 FINAL DIAGNOSIS: 1. Status post right knee replacement by Dr. Nagel on 09/13/16 2. Anemia, post surgical 3. Decline in the ability and function 4. Constipation which got relieved finally 5. Arthritis 6. Chronic back pain 7. COPD 8. Depression 9. GERD 10. Hypertension 11. Hyponatremia, secondary to the medication 12. Schizoaffective disorder 13. Previous smoker 14. Sleep apnea 15. Cholecystectomy 16. Hernia repair 17. Carpel Tunnel syndrome DISCHARGE INSTRUCTIONS: Discharge the patient home. Followup with the pain management. Followup with Dr. Nagel as scheduled. Continue the activity at home as explained by the physical therapist. Followup in the [facility] within 5 days. Advised to take the stool softener Miralax while taking the Percocet. Strictly educated about the pain medication and causing the constipation. MEDICATIONS AT DISCHARGE: Trileptal ProAir Aspirin Strattera Vitamin D Clonazepam Colace Lasix Zestril Mycolog Oxycodone Polyethylene Glycol Seroquel Simvastatin Incruse Ambien DIET INSTRUCTIONS: Cardiac and healthy ACTIVITY: As much as tolerated SMOKING: Recently quit smoking DISEASE SPECIFIC EDUCATION: Pain medication Constipation discussed Anemia and the use of iron pills been discussed. HOSPITAL COURSE: Jhon Lee who had a surgery done by Dr. Nagel on 09/13/16, after that the patient had some blood loss anemia and was initial in the hospital in [place]. After that the patient was still needing some physical therapy and occupation therapy. At that time the patient was transferred to the [facility]. Chemistries shows a Sodium of 129. The patient's Lasix was held. Discussed Vitamin D in detail and the medications side effects. The patient was taking Strattera which causes the hyponatremia which was discussed with the patient and it is given by the psychiatrist. Advised that Strattera needs to be changed but while patient was in the hospital Sodium was 129, 121, 123, 124 and 128 and did not drop much. Lasix is on hold. He did follow the physical therapy well and was able to ambulate by himself with the walker. The patient had a constipation problem and finally he had a big bowel movement continuous to two days. He was feeling better and did not have any problems. As patient was doing fine and not have any complications he is being discharged home. TIME SPENT: More than 45 minutes. [facility]
== END 2016-09-25 13:52 | disposition home or self-care (01) | DRG 560 ==
LOC: MEDSURG B 12:43
PROVIDERS: ADMIT Emergency Medicine; ATTEND Emergency Medicine
DX: Z47.1 Aftercare following joint replacement surgery (principal); Z96.651 Presence of right artificial knee joint; E87.1 Hypo-osmolality and hyponatremia; T50.905A Adverse effect of unspecified drugs, medicaments and biological substances, initial encounter; D64.9 Anemia, unspecified; K59.00 Constipation, unspecified; E11.9 Type 2 diabetes mellitus without complications; E78.5 Hyperlipidemia, unspecified; E66.9 Obesity, unspecified; G47.30 Sleep apnea, unspecified; M19.90 Unspecified osteoarthritis, unspecified site; G89.29 Other chronic pain; M54.9 Dorsalgia, unspecified; F32.9 Major depressive disorder, single episode, unspecified; F25.9 Schizoaffective disorder, unspecified; R53.81 Other malaise; Z79.899 Other long term (current) drug therapy
CPT/HCPCS: 36415; 80053; 85025; 87070; 87081; 93005; 93010; 97802; 97803; 99306; 99310; 99316

== ENCOUNTER 2016-09-27 14:21 | Outpatient (CLI) ==
[2012-12-25 12:03] VITALS: TEMP 98.8
== END 2016-09-27 14:22 ==
LOC: AMBL 14:21
PROVIDERS: ATTEND Emergency Medicine
DX: M96.830 Postprocedural hemorrhage of a musculoskeletal structure following a musculoskeletal system procedure (principal); Z96.651 Presence of right artificial knee joint; R60.0 Localized edema

== ENCOUNTER 2016-10-10 14:00 | Outpatient (RCR) ==
--- NOTE | 2016-09-28 16:06 | RS.OPPTEV2 ---
Date of Note: 09/28/16 Visit #: 1 Date of Evaluation: 09/28/16 Payer Source: MEDICARE Date of Onset/Injury/Change in Status: 09/13/16 Surgery Performed?: Yes (Right TKA) Treatment Diagnosis: Right knee pain, right knee joint effusion, joint stiffness History of Condition/Mechanism of Injury:: Progressive right knee pain led him to have surgery. Prior Level of Function.....Patient was independent with: ADL's, Self Care, Caregiving, Ambulation/Mobility, Community Integration/Access Functional Limitations: Sleep, Self Care, ADL's, Reaching, Pushing, Pulling, Lifting, Carrying, Sitting, Standing, Bending, Squatting, Ambulation, Community Access/Integration Current Subjective/complaints:: Patient reports extreme knee pain. States he was discharged home this Saturday (09/25/16). States he is having trouble with getting up and down from toilet at home. He would like to have a BSC to put over his toilet. Also states he does not have many pillows to elevate his leg at home. States he is using his rolling walker at home. He had significant drainage from the knee yesterday. States it was spraying out of his incision. He was taken by ambulance to the hospital. They recommended he only have every other staple removed today, since the meghann are due to come out today. States he was icing his knee until yesterday. Reports he has numbness along the lateral side of the knee joint. States he goes back to follow up with Dr. Nagel on 10/22/16. Treatment Side (optional): Right Medical History Medical History: Hypertension, COPD, Arthritis Medical History Comments:: History of back pain, neck pain. Chronic Pain syndrome, GERD, Peripheral edema, Schizoaffective disorder, sleep apnea Surgical History Comments:: R TKA on 09/13/16, thoracotomy 2008 right side, cholecystectomy, Hernia repair, Left CTS repair, Right knee cartilage surgery, tonsillectomy. Smoking Status: Current every day smoker Hx Home Medications: aspirin, clonaze,colace, lasix, lisinopril, ocycodone, percocet, seroquel, zocor, tramadol,ambien. States he is to start an antibiotic tomorrow. Patient's Goals: His goal is to regain right knee AROM and get relief of pain. Pain Assessment - Pain Description Pain Location: right knee pain Pain Description: Throbbing, Aching, Acute Current Pain Intensity: 8/10 Worst Pain Intensity: 10+/10 Functional Outcome Measure LE Functional Scale: 11 (=86.25% impairment) - G Codes & Severity Modifier G Codes & Modifier: Mobility current CM. Mobility goal CJ Source of G Code score: LE functional scale Observation - Observation Inspection: Right knee presents with light dressing over incision with quarter size amount of drainage. Upon removal of the dressing, incision is clean with only one small area of slight drainage. Girth Measurement Lower: Right LE. Tibial plateau 51 cm, superior pole of patella 69 cm, ankle 34 cm BMI - BMI Weight: 360 lb Height: 5 ft 10 in BMI: 51.6 Gait - Gait Pattern General Gait Pattern Observation: Antalgic Gait, Short Stance Time (R), Decrease Stride Lngth (L) Gait Comments: Patient ambulates with bariatric rolling walker with decreased right hip and knee flexion during swing phase. Patient with moderate heel strike. Decreased stance phase on the right LE during. Performs sit to stand with Supervision with good safety. - Left Knee ROM Left Knee Extension: full extension Left Knee Flexion: 122 (degrees AROM) - Right Knee ROM Right Knee Extension: -19 degrees from full extension Right Knee Flexion: 74 (degrees AAROM) Knee ROM Limitations: Soft Tissue Tightness, Pain - Left Knee Strength Left Knee Extension: 5 Normal Left Knee Flexion: 5 Normal - Right Knee Strength Right Knee Extension: 4- Good- Right Knee Flexion: 4 Good Palpation Comments:: Patient reports minimal tenderness throughout the right knee joint. Sensation - Sensation Comments: Patient reports numbness along the lateral and inferior aspect of the right knee joint. Additional Comments: Additional Comments: Every other staple was removed as recommended. Steri- strips applied following staple removal. Light dressing applied . Interventions - Exercise/Activities/Manual Therapy Exercises/Activities: Patient assisted with ROM into right knee flexion/ extension. Performs QS, AP's, and assisted with SLR. Patient demonstrates very little visible quad contraction on the right LE. Instructed to work on active knee flexion and extension and ankle pumps. Also advised to elevate right LE and continue to ice the knee. Manual Therapy: NA HOME EXERCISE PROGRAM: AP's, active knee flexion/extension - Charges Total Direct Minutes: 65 mins Total Treatment Time: 65 mins Procedures billed for this date of service:: EVAL medium complexity Assessment Assessment: Mr. Lee presents two weeks s/p right TKA. He demonstrates limited knee ROM, joint effusion, knee pain, and LE weakness. He lives alone and he is at a high risk for falls due to recent surgery, weakness, and need for assistive device. His level of function with selfcare, ADL's, and ambulation is limited due to recent surgery. He will benefit from skilled therapy to regain functional strength and ROM of the right knee to regain prior level of function. Patient Education: Education of diagnosis, Body/Joint mechanics, Home Exercise Program, Home Safety, Activity Modification, Education of Plan of Care Rehab Potential: Good Short Term Goals Goal #1: Patient independent and compliant with basic HEP. Goal to be met by: 10/12/16 Goal #2: Right knee extension to -5 degrees. Goal to be met by: 10/12/16 Goal #3: Right knee flexion to 95 degrees. Goal to be met by: 10/12/16 Goal #4: Right quad strength 4+/5. Goal to be met by: 10/12/16 Care Home Goals Goal #1: Pt knows HEP and to continue exercises after D/C from therapy. Goal to be met by: 11/07/16 Goal #2: Right knee AROM WFL's to be able to perform all ADL's. Goal to be met by: 11/07/16 Goal #3: Pt able to amb. functional distances with minimal gait deviation with AAD. Goal to be met by: 11/07/16 Goal #4: Score on LE functional scale improved to 39% impairment or less. Goal to be met by: 11/07/16 Plan - Treatment to be Provided Procedures: Therapeutic Exercises, Therapeutic Activity, Manual Therapy, Patient Education Modalities: Electrical Stimulation, Cryotherapy, Hot Packs - Treatment Plan Frequency: 3 X week Duration: 4 weeks ORDER # VISITS AND/OR THROUGH DATE: 11/07/16 - Treatment Code (1) Knee pain Qualifiers: Laterality: right Chronicity: acute Qualified Description: Acute pain of right knee Qualifier Code(s): (M25.561) Pain in right knee (2) Knee joint effusion Qualifiers: Laterality: right Qualified Description: Effusion of right knee Qualifier Code(s): (M25.461) Effusion, right knee (3) Aftercare following joint replacement surgery Qualifiers: Joint replacement surgery site: knee Laterality: right Qualified Description: Aftercare following right knee joint replacement surgery Qualifier Code(s): (Z47.1) Aftercare following joint replacement surgery, ( Z96.651) Presence of right artificial knee joint
--- NOTE | 2016-10-01 15:32 | RS.OPPTDN ---
Subjective Date of Note: 10/01/16 Visit #: 2 Date of Evaluation: 09/28/16 Payer Source: MEDICARE Treatment Diagnosis: Right knee pain, right knee joint effusion, joint stiffness Current Subjective/complaints:: Reports doing well,has been keeping the R LE elevated to reduce swelling,also doing his HEP. Pain Assessment - Pain Description Pain Location: right knee pain Pain Description: Throbbing, Aching, Acute Pain Description: increased pain and soreness Current Pain Intensity: 2-3 - Heat/Cryotherapy Treatment: Cryotherapy (20 mins. prior to exercises and removal of remaining meghann.) Interventions - Exercise/Activities/Manual Therapy Exercises/Activities: 25 mins. TKA protocol in supine,3# resistance for SAQ, heelslides.AROM is 104 actively,extension is WFL,0 passively,-7 actively. Total minutes of Exercise: 25 Manual Therapy: NA Total minutes of Manual Therapy: 0 HOME EXERCISE PROGRAM: AP's, active knee flexion/extension - Charges Total Direct Minutes: 45 Total Treatment Time: 55 ( 10 mins. staple removal) Procedures billed for this date of service:: cp,ex 2 Assessment: Patient has soft end feel for R knee flexion,tolerates exercises well.He has moderate edema present ,but less warmth in the R knee.He is attentive to recommendations for the care of his knee. Patient Education: Education of diagnosis, Body/Joint mechanics, Home Exercise Program, Home Safety, Activity Modification, Education of Plan of Care Short Term Goals Goal #1: Patient independent and compliant with basic HEP. Goal to be met by: 10/12/16 Progress towards Goal:: Progressing Goal #2: Right knee extension to -5 degrees. Goal to be met by: 10/12/16 Progress towards Goal:: Progressing Goal #3: Right knee flexion to 95 degrees. Goal to be met by: 10/12/16 (104) Progress towards Goal:: Met Goal #4: Right quad strength 4+/5. Goal to be met by: 10/12/16 Progress towards Goal:: Progressing Intermediate Goals Goal #1: Pt knows HEP and to continue exercises after D/C from therapy. Goal to be met by: 11/07/16 Progress towards goal: Progressing Goal #2: Right knee AROM WFL's to be able to perform all ADL's. Goal to be met by: 11/07/16 Goal #3: Pt able to amb. functional distances with minimal gait deviation with AAD. Goal to be met by: 11/07/16 Goal #4: Score on LE functional scale improved to 39% impairment or less. Goal to be met by: 11/07/16 Plan PLAN OF CARE EXPIRES ON:: 11/07/16 ORDER # VISITS AND/OR THROUGH DATE: 11/07/16 PLAN: Continue Plan of Care
--- NOTE | 2016-10-03 15:56 | RS.OPPTDN ---
Subjective Date of Note: 10/03/16 Visit #: 3 Date of Evaluation: 09/28/16 Payer Source: MEDICARE Treatment Diagnosis: Right knee pain, right knee joint effusion, joint stiffness Current Subjective/complaints:: Patient reports distal incision has opened slightly and he covered with steri-strips. Following exercise patient reports good mobility of the left knee. He states he will continue with standard walker for safety at this time. Pain Assessment - Pain Description Pain Location: right knee pain Pain Description: Throbbing, Aching, Acute Pain Description: increased pain and soreness Current Pain Intensity: 2-3/10 - Heat/Cryotherapy Treatment: Cryotherapy ([id number] to the left knee prior to EX. Patient in supine with left LE elevated. ) Interventions - Exercise/Activities/Manual Therapy Exercises/Activities: 30mins. Quad sets and ham sets. 3# resistance for SAQ, assisted heelslides, 2s/10reps each. Green theraband for ankle df and ham curl, 2s/10reps each. SLR with assist 2s/10reps. Isometric hip add with ball. In sitting, ham sets, quad sets, and LAQ. Total minutes of Exercise: 30mins Manual Therapy: NA HOME EXERCISE PROGRAM: AP's, active knee flexion/extension, quad sets, ham sets , SLR, Isometric hip add. - Objective Findings Observations,measurements,etc.: AAROM for flexion 106 degrees, actvie extension to -4 degrees. - Charges Total Direct Minutes: 30mins Total Treatment Time: 50mins Procedures billed for this date of service:: CP, EX2 Assessment: Patient progressing with EX and ROM. Patient Education: Education of diagnosis, Body/Joint mechanics, Home Exercise Program, Home Safety, Activity Modification Patient demonstrates compliance with HEP?: Yes Short Term Goals Goal #1: Patient independent and compliant with basic HEP. Goal to be met by: 10/12/16 Progress towards Goal:: Progressing Goal #2: Right knee extension to -5 degrees. Goal to be met by: 10/12/16 (100%) Progress towards Goal:: Met Goal #3: Right knee flexion to 95 degrees. Goal to be met by: 10/12/16 (104) Progress towards Goal:: Met Goal #4: Right quad strength 4+/5. Goal to be met by: 10/12/16 Progress towards Goal:: Progressing Loop Tacker Goals Goal #1: Pt knows HEP and to continue exercises after D/C from therapy. Goal to be met by: 11/07/16 Progress towards goal: Progressing Goal #2: Right knee AROM WFL's to be able to perform all ADL's. Goal to be met by: 11/07/16 Goal #3: Pt able to amb. functional distances with minimal gait deviation with AAD. Goal to be met by: 11/07/16 (75%) Progress towards goal: Progressing Goal #4: Score on LE functional scale improved to 39% impairment or less. Goal to be met by: 11/07/16 Plan PLAN OF CARE EXPIRES ON:: 11/07/16 ORDER # VISITS AND/OR THROUGH DATE: 11/07/16 PLAN: Continue Plan of Care (Progress exercise to increase strength and functional activity level.)
--- NOTE | 2016-10-04 16:36 | RS.OPPTDN ---
Subjective Date of Note: 10/04/16 Visit #: 4 Date of Evaluation: 09/28/16 Payer Source: MEDICARE Treatment Diagnosis: Right knee pain, right knee joint effusion, joint stiffness Current Subjective/complaints:: States swelling is down. States he is in a good mood today. States last night he did not sleep well due to knee pain. He continues to use ice on the knee and tries to elevate it when he can. Pain Assessment - Pain Description Pain Location: right knee pain Pain Description: Throbbing, Aching, Acute Pain Description: increased pain and soreness Current Pain Intensity: States "I'm good" - Heat/Cryotherapy Treatment: Cryotherapy Comments:: X 15 mins to right knee prior to exercises. Interventions - Exercise/Activities/Manual Therapy Exercises/Activities: 40 mins. Assisted with right knee flexion and extension. Quad sets and ham sets. 3# resistance for SAQ, assisted heelslides, 2s/10reps each. Green theraband for ankle df and ham curl, 2s/10reps each. SLR with assist 4s/5reps. Isometric hip add with ball. In sitting performs LAQ. Manual Therapy: NA HOME EXERCISE PROGRAM: AP's, active knee flexion/extension, quad sets, ham sets , SLR, Isometric hip add. - Charges Total Direct Minutes: 40 mins Total Treatment Time: 55 mins Procedures billed for this date of service:: CP, Ex3 Assessment: Patient demonstrates improved tolerance for exercises and ambulation. He agrees that swelling is going down. He is motivated to regain his previous level of function. Short Term Goals Goal #1: Patient independent and compliant with basic HEP. Goal to be met by: 10/12/16 Progress towards Goal:: Progressing Goal #2: Right knee extension to -5 degrees. Goal to be met by: 10/12/16 (100%) Progress towards Goal:: Met Goal #3: Right knee flexion to 95 degrees. Goal to be met by: 10/12/16 (104) Progress towards Goal:: Met Goal #4: Right quad strength 4+/5. Goal to be met by: 10/12/16 Progress towards Goal:: Progressing Shelter Goals Goal #1: Pt knows HEP and to continue exercises after D/C from therapy. Goal to be met by: 11/07/16 Progress towards goal: Progressing Goal #2: Right knee AROM WFL's to be able to perform all ADL's. Goal to be met by: 11/07/16 Goal #3: Pt able to amb. functional distances with minimal gait deviation with AAD. Goal to be met by: 11/07/16 (75%) Progress towards goal: Progressing Goal #4: Score on LE functional scale improved to 39% impairment or less. Goal to be met by: 11/07/16 Plan PLAN OF CARE EXPIRES ON:: 11/07/16 ORDER # VISITS AND/OR THROUGH DATE: 11/07/16 PLAN: Continue Plan of Care
--- NOTE | 2016-10-08 16:12 | RS.OPPTDN ---
Subjective Date of Note: 10/08/16 Visit #: 5 Date of Evaluation: 09/28/16 Payer Source: MEDICARE Treatment Diagnosis: Right knee pain, right knee joint effusion, joint stiffness Current Subjective/complaints:: Patient reports continued pain and stiffness in the right knee. Pain Assessment - Pain Description Pain Location: right knee pain Pain Description: Throbbing, Aching, Acute Pain Description: increased pain and soreness Current Pain Intensity: mod discomfort today - Heat/Cryotherapy Treatment: Cryotherapy ([id number] to right knee prior to EX. Patient in supine. ) Interventions - Exercise/Activities/Manual Therapy Exercises/Activities: 35mins. Assisted with right knee flexion and extension. Quad sets and ham sets. 4# resistance for SAQ, assisted heelslides, 2s/10reps each. Green theraband for ankle df and ham curl, 2s/10reps each. SLR 2s/10reps. Isometric hip add with ball. In sitting performs LAQ with 3#, 2s/10reps and green theraband for ham curl 2s/10reps. Total minutes of Exercise: 35mins Manual Therapy: NA HOME EXERCISE PROGRAM: AP's, active knee flexion/extension, quad sets, ham sets , SLR, Isometric hip add. - Charges Total Direct Minutes: 35mins Total Treatment Time: 55mins Procedures billed for this date of service:: HP, EX2 Assessment: Patient progressing with exercise and encouraged to increase times per day as well as walking in home. Patient Education: Education of diagnosis, Body/Joint mechanics, Home Exercise Program, Home Safety Comments: Reviewed dx, mechanics, and HEP. Advised patient to increase HEP times per day and increase walking in his home. Patient demonstrates compliance with HEP?: Yes Short Term Goals Goal #1: Patient independent and compliant with basic HEP. Goal to be met by: 10/12/16 Progress towards Goal:: Progressing Goal #2: Right knee extension to -5 degrees. Goal to be met by: 10/12/16 (100%) Progress towards Goal:: Met Goal #3: Right knee flexion to 95 degrees. Goal to be met by: 10/12/16 (104) Progress towards Goal:: Met Goal #4: Right quad strength 4+/5. Goal to be met by: 10/12/16 Progress towards Goal:: Progressing Drop Hammer Operator Helper Goals Goal #1: Pt knows HEP and to continue exercises after D/C from therapy. Goal to be met by: 11/07/16 Progress towards goal: Progressing Goal #2: Right knee AROM WFL's to be able to perform all ADL's. Goal to be met by: 11/07/16 Goal #3: Pt able to amb. functional distances with minimal gait deviation with AAD. Goal to be met by: 11/07/16 (75%) Progress towards goal: Progressing Goal #4: Score on LE functional scale improved to 39% impairment or less. Goal to be met by: 11/07/16 Plan PLAN OF CARE EXPIRES ON:: 11/07/16 ORDER # VISITS AND/OR THROUGH DATE: 11/07/16 PLAN: Continue Plan of Care
--- NOTE | 2016-10-10 15:32 | RS.OPPTDN ---
Subjective Date of Note: 10/10/16 Visit #: 6 Date of Evaluation: 09/28/16 Payer Source: MEDICARE Treatment Diagnosis: Right knee pain, right knee joint effusion, joint stiffness Current Subjective/complaints:: Reports doing his eercises,he feels the therapy is helping. Pain Assessment - Pain Description Pain Location: right knee pain Pain Description: Throbbing, Aching, Acute Pain Description: increased pain and soreness Current Pain Intensity: mod discomfort today - Heat/Cryotherapy Treatment: Cryotherapy (20 mins. prior to ex.) Interventions - Exercise/Activities/Manual Therapy Exercises/Activities: 35mins. Assisted with right knee flexion and extension. Quad sets and ham sets. 4# resistance for SAQ, assisted heelslides, 3s/15reps each. Green theraband for ankle df and ham curl, 2s/10reps each. SLR 2s/10reps. In sitting performs LAQ with 4#, 3s/10reps Total minutes of Exercise: 35 Manual Therapy: NA Total minutes of Manual Therapy: 0 HOME EXERCISE PROGRAM: AP's, active knee flexion/extension, quad sets, ham sets , SLR, Isometric hip add. - Objective Findings Observations,measurements,etc.: AROM R knee 108 flex,extension is WNL. - Charges Total Direct Minutes: 35 Total Treatment Time: 55 Procedures billed for this date of service:: cp,ex 2 Assessment: Progressing well,less edema and less warmth in the R knee.He has soft end feel present for flexion ,as it also has improved .The knee extension is WNL.He is compliant to HEP. Patient Education: Education of diagnosis, Body/Joint mechanics, Home Exercise Program, Home Safety, Activity Modification, Education of Plan of Care Patient demonstrates compliance with HEP?: Yes Short Term Goals Goal #1: Patient independent and compliant with basic HEP. Goal to be met by: 10/12/16 Progress towards Goal:: Progressing Goal #2: Right knee extension to -5 degrees. Goal to be met by: 10/12/16 (100%) Progress towards Goal:: Met Goal #3: Right knee flexion to 95 degrees. Goal to be met by: 10/12/16 (108 today) Progress towards Goal:: Met Goal #4: Right quad strength 4+/5. 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 Goal to be met by: 11/07/16 Progress towards goal: Progressing Goal #2: Right knee AROM WFL's to be able to perform all ADL's. Goal to be met by: 11/07/16 Progress towards goal: Progressing Goal #3: Pt able to amb. functional distances with minimal gait deviation with AAD. Goal to be met by: 11/07/16 (75%) Progress towards goal: Progressing Goal #4: Score on LE functional scale improved to 39% impairment or less. Goal to be met by: 11/07/16 Plan PLAN OF CARE EXPIRES ON:: 11/07/16 ORDER # VISITS AND/OR THROUGH DATE: 11/07/16 PLAN: Continue Plan of Care
== END 2016-10-12 ==
PROVIDERS: ATTEND Orthopaedic Surgery
DX: M25.561 Pain in right knee (principal); M25.661 Stiffness of right knee, not elsewhere classified; Z96.651 Presence of right artificial knee joint

== ENCOUNTER 2016-10-24 14:00 | Outpatient (RCR) ==
[2012-12-25 12:03] VITALS: TEMP 98.8
--- NOTE | 2016-10-18 15:02 | RS.OPPTDN ---
Subjective Date of Note: 10/18/16 Visit #: 7 Date of Evaluation: 09/28/16 Payer Source: MEDICARE Treatment Diagnosis: Right knee pain, right knee joint effusion, joint stiffness Current Subjective/complaints:: Ppatient reports he is walking often in his apt. and outside if the weather is good.We discussed for him to do his exercises on a regular basis,along with walking. Pain Assessment - Pain Description Pain Location: right knee pain Pain Description: Dull, Throbbing Current Pain Intensity: not rated today Interventions - Exercise/Activities/Manual Therapy Exercises/Activities: 45mins. Assisted with right knee flexion and extension. Quad sets and ham sets. 4# resistance for SAQ, assisted heelslides, 3s/15reps each. SLR's without weights x 15 reps.Blue theraband for ankle df and ham curl, 3s/15reps each. SLR 3s/15reps. In sitting performs LAQ with 4#, 3s/ 15reps.AROM today is 108-110 ,extension -3. Total minutes of Exercise: 45 Manual Therapy: NA Total minutes of Manual Therapy: 0 HOME EXERCISE PROGRAM: AP's, active knee flexion/extension, quad sets, ham sets , SLR, Isometric hip add. - Charges Total Direct Minutes: 45 Total Treatment Time: 45 Procedures billed for this date of service:: ex 3 Assessment: Patient continues to have less edema ,less warmth in the R knee.He also has improved strength in the quads and hamstrings,increased knee flexion actively today. Patient Education: Education of diagnosis, Body/Joint mechanics, Home Exercise Program, Home Safety, Activity Modification, Education of Plan of Care Patient demonstrates compliance with HEP?: Yes Short Term Goals Goal #1: Patient independent and compliant with basic HEP. Goal to be met by: 10/12/16 Progress towards Goal:: Partially Met Goal #2: Right knee extension to -5 degrees. Goal to be met by: 10/12/16 Progress towards Goal:: Met Goal #3: Right knee flexion to 95 degrees. Goal to be met by: 10/12/16 (108-110 today) Progress towards Goal:: Met Goal #4: Right quad strength 4+/5. 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 Goal to be met by: 11/07/16 Progress towards goal: Partially Met Goal #2: Right knee AROM WFL's to be able to perform all ADL's. Goal to be met by: 11/07/16 Progress towards goal: Progressing Goal #3: Pt able to amb. functional distances with minimal gait deviation with AAD. Goal to be met by: 11/07/16 Progress towards goal: Progressing Goal #4: Score on LE functional scale improved to 39% impairment or less. Goal to be met by: 11/07/16 Plan PLAN OF CARE EXPIRES ON:: 11/07/16 ORDER # VISITS AND/OR THROUGH DATE: 11/07/16 PLAN: Progress Exercises
--- NOTE | 2016-10-19 11:32 | RS.CXNS ---
Date of scheduled appointment: 10/19/16 Type: Cancel Reason for Cancel/NS: Called,sick today.
--- NOTE | 2016-10-22 15:43 | RS.OPPTDN ---
Subjective Date of Note: 10/22/16 Visit #: 8 Date of Evaluation: 09/28/16 Payer Source: MEDICARE Treatment Diagnosis: Right knee pain, right knee joint effusion, joint stiffness Current Subjective/complaints:: Reports he saw Dr. Nagel today,good report regarding the R knee.He has pain meds. to assist with pain control. Pain Assessment - Pain Description Pain Location: right knee pain Pain Description: Dull, Throbbing Pain Description: increased pain and soreness Current Pain Intensity: not rated today Interventions - Exercise/Activities/Manual Therapy Exercises/Activities: 50 mins. total ,HEP review,09/26 each for bilateral leg press @ 75 ,90 and 105 #,then single leg press @ 60#,seated calf raises @ 30# .Standing and holding to walker,did 20 reps high steps in place.AROM is 10-112 flexion,extension is WNL. Total minutes of Exercise: 50 Manual Therapy: NA Total minutes of Manual Therapy: 0 HOME EXERCISE PROGRAM: AP's, active knee flexion/extension, quad sets, ham sets , SLR, Isometric hip add. - Charges Total Direct Minutes: 50 Total Treatment Time: 50 Procedures billed for this date of service:: ex 3 Assessment: Patient has increased quads and hamstring strength,soft end feel for flexion,steady gait with assistive device ,and improved gait for short distances without assistive device. Patient Education: Education of diagnosis, Body/Joint mechanics, Home Exercise Program, Home Safety, Activity Modification, Education of Plan of Care Short Term Goals Goal #1: Patient independent and compliant with basic HEP. Goal to be met by: 10/12/16 Progress towards Goal:: Partially Met Goal #2: Right knee extension to -5 degrees. Goal to be met by: 10/12/16 Progress towards Goal:: Met Goal #3: Right knee flexion to 95 degrees. Goal to be met by: 10/12/16 (108-110 today) Progress towards Goal:: Met Goal #4: Right quad strength 4+/5. 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 Goal to be met by: 11/07/16 Progress towards goal: Partially Met Goal #2: Right knee AROM WFL's to be able to perform all ADL's. Goal to be met by: 11/07/16 Progress towards goal: Progressing Goal #3: Pt able to amb. functional distances with minimal gait deviation with AAD. Goal to be met by: 11/07/16 Progress towards goal: Partially Met Goal #4: Score on LE functional scale improved to 39% impairment or less. Goal to be met by: 11/07/16 Plan PLAN OF CARE EXPIRES ON:: 11/07/16 ORDER # VISITS AND/OR THROUGH DATE: 11/07/16 PLAN: Progress Exercises
--- NOTE | 2016-10-24 15:20 | RS.OPPTDN ---
Subjective Date of Note: 10/24/16 Visit #: 9 Date of Evaluation: 09/28/16 Payer Source: MEDICARE Treatment Diagnosis: Right knee pain, right knee joint effusion, joint stiffness Current Subjective/complaints:: Patient reports his R knee pain was elevated for the rest of the day after the last PT session,but better yesterday. Pain Assessment - Pain Description Pain Location: right knee pain Pain Description: Dull, Throbbing Pain Description: increased pain and soreness Current Pain Intensity: not rated today Interventions - Exercise/Activities/Manual Therapy Exercises/Activities: 50 mins. total ,HEP review,09/26 each for bilateral leg press @90 #,then decreased the resistanceto 75 #,60# 30 # ,15 reps. each,seated calf raises @ 30#.Standing and holding to walker,did 20 reps high steps in place.AROM is 10-112 flexion,extension is WNL. Total minutes of Exercise: 50 Manual Therapy: NA Total minutes of Manual Therapy: 0 HOME EXERCISE PROGRAM: AP's, active knee flexion/extension, quad sets, ham sets , SLR, Isometric hip add. - Charges Total Direct Minutes: 50 Total Treatment Time: 50 Procedures billed for this date of service:: ex 3 Assessment: Patient reports the knee feels less painful after exercises today, and more flexible.He has steady gait with R/W for longer distances,and short distances without assistive device. Patient Education: Education of diagnosis, Body/Joint mechanics, Home Exercise Program, Home Safety, Activity Modification, Education of Plan of Care Short Term Goals Goal #1: Patient independent and compliant with basic HEP. Goal to be met by: 10/12/16 Progress towards Goal:: Partially Met Goal #2: Right knee extension to -5 degrees. Goal to be met by: 10/12/16 Progress towards Goal:: Met Goal #3: Right knee flexion to 95 degrees. Goal to be met by: 10/12/16 (108-110 today) Progress towards Goal:: Met Goal #4: Right quad strength 4+/5. Goal to be met by: 10/12/16 Progress towards Goal:: Partially Met Residential Goals Goal #1: Pt knows HEP and to continue exercises after D/C from therapy. Goal to be met by: 11/07/16 Progress towards goal: Partially Met Goal #2: Right knee AROM WFL's to be able to perform all ADL's. Goal to be met by: 11/07/16 Progress towards goal: Partially Met Goal #3: Pt able to amb. functional distances with minimal gait deviation with AAD. Goal to be met by: 11/07/16 Progress towards goal: Partially Met Goal #4: Score on LE functional scale improved to 39% impairment or less. Goal to be met by: 11/07/16 Progress towards goal: Progressing Plan PLAN OF CARE EXPIRES ON:: 11/07/16 ORDER # VISITS AND/OR THROUGH DATE: 11/07/16 PLAN: Continue Plan of Care
--- NOTE | 2016-10-29 09:47 | RS.CSNOTE ---
PT Case Note Date of Note: 10/29/16 Title of document: Patient status at D/C Note: Patient has R knee AROM of 112 flexion,extension is WNL,good understanding of HEP.He ambulates safely for longer distances with R/W,short functional distances without assistive device in gym.He does report he uses his power scooter for going to grocery,etc.
--- NOTE | 2016-11-02 13:41 | RS.OPPTDC ---
Date of Discharge: 10/24/16 Date of Evaluation: 09/28/16 Number of Visits: 9 Treatment Diagnosis: Right knee pain, right knee joint effusion, joint stiffness Current Complaints/Gains: Patient reports his knee pain is still severe. Reports gradual improvement with mobility. Functional Outcome Measure LE Functional Scale: 13 (=84.75% impairment) - G Codes & Severity Modifier G Codes & Modifier: mobility D/C CJ. mobility goal CJ Source of G Code score: Patient scores himself at 84% impaired on the LE functional scale. This is not an accurate score for the function and mobility he presents in the department. Upon presentation, he appears to be no more than 39% impaired in the mobility category. Interventions - Exercise/Activities/Manual Therapy Exercises/Activities: NA Manual Therapy: NA HOME EXERCISE PROGRAM: AP's, active knee flexion/extension, quad sets, ham sets , SLR, Isometric hip add. - Objective Findings Observations,measurements,etc.: Right Quads and HS strength 4+/5. Demonstrates active flexion to 112 degrees and extension is WNL's. He ambulates with his RW community distances with more symmetrical gait compared to intial evaluation. - Charges Total Direct Minutes: NA Total Treatment Time: NA Procedures billed for this date of service:: NA Assessment Assessment: Patient with functional AROM and strength of the right knee. He has progressed towards goals and does not appear to need further skilled therapy at this time. Short Term Goals Goal #1: Patient independent and compliant with basic HEP. Goal to be met by: 10/12/16 Progress towards Goal:: Met Goal #2: Right knee extension to -5 degrees. Goal to be met by: 10/12/16 Progress towards Goal:: Met Goal #3: Right knee flexion to 95 degrees. Goal to be met by: 10/12/16 (108-110 today) Progress towards Goal:: Met Goal #4: Right quad strength 4+/5. 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 Goal to be met by: 11/07/16 Progress towards goal: Met Goal #2: Right knee AROM WFL's to be able to perform all ADL's. Goal to be met by: 11/07/16 Progress towards goal: Met Goal #3: Pt able to amb. functional distances with minimal gait deviation with AAD. Goal to be met by: 11/07/16 Progress towards goal: Met Goal #4: Score on LE functional scale improved to 39% impairment or less. Goal to be met by: 11/07/16 Progress towards goal: Met Plan Reason for Discharge:: Maximum Potential Met
== END 2016-11-11 ==
PROVIDERS: ATTEND Orthopaedic Surgery
DX: M17.11 Unilateral primary osteoarthritis, right knee (principal); Z96.651 Presence of right artificial knee joint

== ENCOUNTER 2017-04-01 07:09 | Emergency (ER) ==
[2017-04-01 07:13] VITALS: BP 185/114; TEMP 97.2; BMI 50.2
[2017-04-01] MEDS ORDERED: FLUORETS OP STA (07:17)
[2017-04-01] MEDS ORDERED: TETRACAINE 0.5% UNIT-DOSE OP STA (07:17)
[2017-04-01] MEDS ORDERED: EYE-STREAM OP STA (07:18)
[2017-04-01] MEDS ORDERED: FLUORETS OP ONE (07:19)
[2017-04-01] MEDS ORDERED: TETRACAINE 0.5% UNIT-DOSE OP ONE (07:19)
[2017-04-01] MEDS ORDERED: EYE-STREAM OP ONE (07:19)
[2017-04-01] MEDS ORDERED: GENTAK OPTH SOL OP STA (07:27)
--- NOTE | 2017-04-01 07:31 | ED.PDOC ---
General ED Provider: Dr. DEJAH TRENT-ER Chief Complaint: Eye Problem Stated Complaint: i got something in my eye--it hurts to blink Time Seen by Physician: 07:15 Mode of Arrival: Walk-In Information Source: Patient Exam Limitations: No limitations [facility] Nursing and Triage Documentation Reviewed and Agree: Yes EENT Complaint Exam - Eye Complaint/Exam Onset/Duration: a few hours Symptoms Are: Still present Timing: Constant Initial Severity: Mild Current Severity: Mild Location: Left Character: Reports: Dull, Throbbing, Foreign body sensation Aggravating: Reports: Blinking Alleviating: Reports: None Associated Signs and Symptoms: Reports: Photophobia, Clear drainage, Vision impairment. Denies: Purulent drainage, Fever, Swelling Eye Surgical History: Reports: None Penetrating Injury Risk Factors: None Globe Rupture Risk Factors: None Acute Glaucoma Risk Factors: None Visual Acuity Right Eye: 20/20 Visual Acuity Left Eye: 20/70 Visual Field: Normal Extraocular Movement: Normal Orbit Findings: Normal Globe Findings: Intact Lid Findings: Normal Conjunctival Findings: Red Corneal Findings: Clear Fluorescein Uptake: Yes Fundi: Normal Slit Lamp Used: No Differential Diagnoses: Conjunctivitis, Corneal Abrasion, Foreign Body Review of Systems - Review Of Systems Constitutional: Reports: No symptoms Eyes: Reports: Blurred vision, Drainage, Inflammation, Pain, Glasses Ears, Nose, Mouth, Throat: Reports: No symptoms Respiratory: Reports: No symptoms Cardiac: Reports: No symptoms GI: Reports: No symptoms : Reports: No symptoms Musculoskeletal: Reports: No symptoms Skin: Reports: No symptoms Neurological: Reports: No symptoms Endocrine: Reports: No symptoms Hematologic/Lymphatic: Reports: No symptoms All Other Systems: Reviewed and Negative Past Medical History - Past Medical History Previously Healthy: No Endocrine: Reports: DM 2, Hyperthyroid, Dyslipidemia Cardiovascular: Reports: Hypertension Respiratory: Reports: COPD Hematological: Reports: None Gastrointestinal: Reports: GERD Genitourinary: Reports: None Neuro/Psych: Reports: Bipolar Disorder Musculoskeletal: Reports: None Cancer: Reports: Unknown - Surgical History General Surgical History: Reports: Unknown - Family History Family History: Reports: Unknown - Social History Smoking Status: Current every day smoker Hx Substance Use: No Alcohol Screening: None Lives: With family Physical Exam - Physical Exam Appearance: Well-appearing, No pain distress, Well-nourished Eyes: BIMAL, EOMI, Conjunctiva inflammed ENT: Ears normal Neck: Supple Respiratory: Airway patent, Breath sounds clear, Breath sounds equal, Respirations nonlabored Cardiovascular: RRR, Pulses normal, No rub, No murmur GI/: Soft, Nontender, No masses, Bowel sounds normal, No Organomegaly Musculoskeletal: Normal strength, ROM intact, No edema, No calf tenderness Skin: Warm, Dry, Normal color Neurological: Sensation intact, Motor intact, Reflexes intact, Cranial nerves intact, Alert, Oriented Psychiatric: Affect appropriate, Mood appropriate Critical Care Note - Critical Care Note Total Time (mins): 0 Course - Course Orders, Labs, Meds: Orders Category Date Time Status Eye [ED EYE PATCH] .ONCE EMERGENCY 04/01/17 07:28 Active Balanced Salt Solution [Eye-Stream] MEDS 04/01/17 07:19 Discontinued 1 bottle OP .STK-MED ONE Balanced Salt Solution [Eye-Stream] MEDS 04/01/17 07:18 Discontinued 1 bottle OP ONCE STA Fluorescein Sodium [Fluorets] MEDS 04/01/17 07:19 Discontinued 1 strip OP .STK-MED ONE Fluorescein Sodium [Fluorets] MEDS 04/01/17 07:17 Discontinued 1 strip OP ONCE STA Gentamicin Sulfate Opth [Gentak Opth Marcela] MEDS 04/01/17 07:27 Discontinued 1 drop OP ONCE STA Tetracaine HCl/Pf [Tetracaine 0.5% Unit-Dose] MEDS 04/01/17 07:19 Discontinued 1 drop OP .STK-MED ONE Tetracaine HCl/Pf [Tetracaine 0.5% Unit-Dose] MEDS 04/01/17 07:17 Discontinued 2 drop OP ONCE STA Medications Discontinued Medications Generic Name Dose Route Start Last Admin Trade Name Freq PRN Reason Stop Dose Admin Eye Irrigation Solution 1 bottle 04/01/17 07:18 Eye-Stream OP 04/01/17 07:19 ONCE STA Fluorescein Sodium 1 strip 04/01/17 07:17 Fluorets OP 04/01/17 07:18 ONCE STA Gentamicin Sulfate 1 drop 04/01/17 07:27 Gentak Opth Marcela OP 04/01/17 07:28 ONCE STA Tetracaine HCl 2 drop 04/01/17 07:17 Tetracaine 0.5% Unit-Dose OP 04/01/17 07:18 ONCE STA Vital Signs: Temp Pulse Resp BP Pulse Ox 04/01/17 07:11 97.2 F L 90 20 185/114 H 97 Departure - Departure Time of Disposition: 07:31 Disposition: HOME SELF-CARE Discharge Problem: Corneal abrasion Qualifiers: Encounter type: initial encounter Laterality: left Qualified Code(s): S05.02XA - Injury of conjunctiva and corneal abrasion without foreign body, left eye, initial encounter Instructions: Corneal Abrasion (ED) Condition: Good Pt referred to PMD for follow-up: Yes Additional Instructions: keep eye patches--gentamycin drops 2 drops tid--see dr jones tomorrow for recheck--use your home pain meds for relief Allergies/Adverse Reactions: Allergies sulfamethoxazole [From Bactrim] Allergy (Mild, Verified 04/01/17 07:14) itch trimethoprim [From Bactrim] Allergy (Mild, Verified 04/01/17 07:14) itch Home Medications: Ambulatory Orders Zolpidem Tartrate [Ambien] 10 mg PO BEDTIME 09/10/13 Oxycodone-Acetaminophe 7.5-325 [Percocet 7.5-325] 1 tab PO TID PRN 12/05/15 Cholecalciferol (Vitamin D3) [Vitamin D3] 1,000 unit PO DAILY 07/24/16 Aspirin [Aspirin EC] 81 mg PO BIDWM 09/17/16 Docusate Sodium [Colace] 100 mg PO DAILY 09/17/16 Furosemide [Lasix] 10 mg PO DAILY PRN 09/17/16 Nystatin/Triamcin [Mycolog] 1 applic TP QID PRN 09/17/16 Umeclidinium [place] [Incruse Ellipta] 62.5 mcg INH DAILY 09/22/16 Nystatin/Triamcin [Nystatin-Triamcinolone Cream] 15 gm TP QID PRN 10/15/16 Disposition Discussed With: Patient
== END 2017-04-01 07:54 | disposition home or self-care (01) ==
LOC: ED 07:09
DX: S05.02XA Injury of conjunctiva and corneal abrasion without foreign body, left eye, initial encounter (principal); F17.210 Nicotine dependence, cigarettes, uncomplicated
CPT/HCPCS: 99283

== ENCOUNTER 2017-08-09 07:42 | Outpatient (CLI) ==
[2012-12-25 12:03] VITALS: TEMP 98.8
== END 2017-08-09 07:43 | disposition home or self-care (01) ==
LOC: LAB 07:42
PROVIDERS: ATTEND Nurse Practitioner Family
DX: M54.9 Dorsalgia, unspecified (principal); E78.5 Hyperlipidemia, unspecified; I10 Essential (primary) hypertension; Z12.5 Encounter for screening for malignant neoplasm of prostate
CPT/HCPCS: 36415; 80053; 80061; 85025

== ENCOUNTER 2018-01-20 09:04 | Outpatient (CLI) | payer OTHER ==
[2012-12-25 12:03] VITALS: TEMP 98.8
--- NOTE | 2018-01-20 11:45 | MRI ---
EXAM: MRI of the left knee without contrast COMPARISON: None available. HISTORY: Left knee pain. TECHNIQUE: Multiplanar noncontrast MR images of the left knee were acquired using a 1.2 Anne magnet . The axial sequence was repeated due to patient motion artifact. FINDINGS: No recent radiographs of the left knee are available for comparison and radiographic corre lation is recommended. There is intrasubstance degeneration of the medial meniscus. Hyperintense signal within the meniscus comes in close proximity to the inferior articular surface at the body/posterior horn junction with suspected small inferior articular surface tear with peripheral undersurface flap at that level. The re is also suspected radial component of the tear involving the free edge at that level. Meniscocapsu lar injury posteromedially. 2.0 x 1.5 x 0.7 cm T2 hyperintense focus along the peripheral margin medi al meniscus at/below the joint line at the level the body concerning for a parameniscal cyst and/or m edial collateral ligament bursitis Intrasubstance degeneration of the lateral meniscus without a surf acing tear. Intact anterior and posterior cruciate ligament fibers are identified. Scarring related to a chronic sprain of the anterior cruciate ligament. Partial tear medial collateral ligament with thinning of the ligament most extensive at/above the level of the joint line with some thin residual intact fiber s identified. The lateral collateral ligament complex and posterolateral corner ligaments are intact . Moderate distal quadriceps tendinosis and enthesopathy. Mild to moderate tendinosis and enthesopa thy. No significant subluxation of the patella. Subcutaneous edema anteriorly, medially and lateral ly without a drainable fluid collection. There is chondromalacia patella. Mild to moderate thinning of the cartilage in the medial compartmen t. Marrow edema within the posteromedial aspect of the medial tibial plateau related to stress react ion contusion without evidence of an acute fracture. There is a small joint effusion. Slit-like pop liteal cyst. No osteochondral body identified. Diffuse muscle atrophy. No soft tissue mass identif ied. IMPRESSION: 1. Intrasubstance degeneration of the medial meniscus with superimposed tear and possible paramenisc al cyst as described in detail above. Menisco-capsular sprain posteromedially. 2. Medial and patellofemoral compartment osteoarthrosis. Stress reaction versus contusion involving the medial tibial plateau without a discrete fracture. 3. Small joint effusion. Slit-like popliteal cyst. 4. Patellar/quadriceps tendinosis and enthesopathy. 5. Subcutaneous edema. 6. Partial thickness tear of the medial collateral ligament with some thin residual intact fibers id entified. Chronic sprain with scarring of the anterior cruciate ligament with intact fibers identifie d.
== END 2018-01-20 09:05 | disposition home or self-care (01) ==
LOC: RAD 09:04
PROVIDERS: ATTEND Nurse Practitioner Family
DX: M25.562 Pain in left knee (principal); G89.29 Other chronic pain

== ENCOUNTER 2018-02-03 08:31 | Outpatient (CLI) ==
[2012-12-25 12:03] VITALS: TEMP 98.8
--- NOTE | 2018-02-03 09:19 | US ---
EXAM: Ultrasound abdomen limited. HISTORY: Fatty liver. COMPARISON: 06/20/2015. TECHNIQUE: Abdominal, real time with image documentation: limited (eg, single organ, quadrant, foll ow-up) FINDINGS: Technical quality is limited by patient's body habitus, particularly evaluation for focal liver lesions The liver likely demonstrates increased parenchymal echogenicity. There is no mayank in trahepatic biliary dilatation. Portal venous flow is normal in direction. The gallbladder is absent . Common duct measures approximately 0.5 cm. The pancreas is not seen due to bowel gas. IMPRESSION: Fatty infiltration of the liver is suspected.
== END 2018-02-03 08:32 | disposition home or self-care (01) ==
LOC: RAD 08:31
PROVIDERS: ATTEND Nurse Practitioner Family
DX: K76.0 Fatty (change of) liver, not elsewhere classified (principal); I10 Essential (primary) hypertension; J44.9 Chronic obstructive pulmonary disease, unspecified; E78.5 Hyperlipidemia, unspecified; Z12.5 Encounter for screening for malignant neoplasm of prostate
CPT/HCPCS: 36415; 80053; 80061; 84443; 85025

== ENCOUNTER 2018-02-07 08:16 | Outpatient (CLI) | payer OTHER ==
[2012-12-25 12:03] VITALS: TEMP 98.8
== END 2018-02-07 08:17 | disposition home or self-care (01) ==
LOC: LAB 08:16
PROVIDERS: ATTEND Nurse Practitioner Family
DX: E87.1 Hypo-osmolality and hyponatremia (principal)
CPT/HCPCS: 36415; 84295

== ENCOUNTER 2018-03-28 09:00 | Outpatient (RCR) | payer OTHER, MEDICAID ==
[2012-12-25 12:03] VITALS: TEMP 98.8
--- NOTE | 2018-03-27 11:32 | RS.OPPTEV2 ---
Date of Note: 03/26/18 Visit #: 1 Date of Evaluation: 03/26/18 Payer Source: MEDICARE Surgery Performed?: No Treatment Diagnosis: chronic pain L knee History of Condition/Mechanism of Injury:: pt with approx 1 year hx of L knee pain. States pain limits sleep and mobility in the home. Prior Level of Function.....Patient was independent with: ADL's, Self Care, Ambulation/Mobility, Community Integration/Access Functional Limitations: Sleep, Self Care, ADL's, Reaching, Pushing, Pulling, Lifting, Carrying, Sitting, Standing, Bending, Squatting, Ambulation, Community Access/Integration Current Subjective/complaints:: pt states he has pain L medial knee as well as posterior knee and hamstrings. pt reports increased pain with all ROM. pt tearful with ROM/ex. Treatment Side (optional): Left *Precautions: n/a Medical History Medical History: Hypertension, COPD, Arthritis Medical History Comments:: History of back pain, neck pain. Chronic Pain syndrome, GERD, Peripheral edema, Schizoaffective disorder, sleep apnea Surgical History: Knee Replacement Surgical History Comments:: R TKA on 09/13/16, thoracotomy 2008 right side, cholecystectomy, Hernia repair, Left CTS repair, Right knee cartilage surgery, tonsillectomy. Smoking Status: Current every day smoker Diagnostic Testing/Imaging:: knee MRI from [facility]: degeneration of the medial meniscus with superimposed tear, medial patellofemoral osteoarthrosis, joint effusion, tendinosis, partial thickness tear of MCL Hx Home Medications: proair, albuterol, atomoxetine, simvastatin, oxcarbazepin, quetiaine fumurates, lisinopril, oxycodone, zolpidem, clonazepam, furosemide, incruse ellipta, nystatin cream, simvastatin, gabapentin Pain Assessment - Pain Description Pain Location: L knee Pain Description: Aching Current Pain Intensity: 8 Worst Pain Intensity: 10 Functional Outcome Measure LE Functional Scale: 7 (pt presents at a higher level) - G Codes & Severity Modifier G Codes & Modifier: mobility: walking and moving around: current CM. mobility: walking and moving around: goal CL Source of G Code score: pt function and LE functional index Observation - Observation Inspection: pt with significant L hamstring tightness. pt also with edema BLE equal . Posture: Forward Head, Rounded Shoulders, Increased Thoracic Kyphosis, Decreased Lumbar Lordosis Handedness: Right Gait - Gait Pattern General Gait Pattern Observation: Antalgic Gait, Decrease Stride Lngth (R), Decrease Stride Lngth (L), Lateral Trunk Lean Gait Comments: pt amb with decreased step length, flexed posture, antalgic gait , amb with BLE external rotated. General Range of Motion: BUE WFL's. RLE WFL's Muscle Strength: BUE shld flex 4+/5, elbow flex/ext 4+/5. RLE 4+/5 Knee ROM: Right WFL's Knee Muscle Strength: Right WFL's - Left Knee ROM Left Knee Extension: -18 Left Knee Flexion: 95 (AAROM) Knee ROM Limitations: Soft Tissue Tightness, Muscle Weakness, Pain - Left Knee Strength Left Knee Extension: 3- Fair- Left Knee Flexion: 3- Fair- - Special Tests Knee Varus Stress Test: Positive Left Patella Apprehension Test: Positive Left Comments: Very difficult to test due to pain with even light touch. pt cries out in pain with even light pressure. Palpation Palpation Findings: Tenderness Comments:: L knee ant, medial as well as in posterior/medial thigh Sensation - Sensation Right Upper Extremity: Intact/Normal Left Upper Extremity: Intact/Normal Right Lower Extremity: Intact/Normal Left Lower Extremity: Intact/Normal Balance - Sitting Balance Static Sitting Balance: Good Dynamic Sitting Balance: Good - Standing Balance Static Standing Balance: Fair Dynamic Standing Balance: Poor - Heat/Cryotherapy Treatment: Cryotherapy (L knee) Interventions - Exercise/Activities/Manual Therapy Exercises/Activities: pt performed QS, HS, hip abd/add, LAQ x 5 reps with assist and multiple verbal cues for technique. Manual Therapy: NA HOME EXERCISE PROGRAM: pt given written HEP including AP, QS, HS, hip abd, LAQ, hamstring stretch - Charges Timed Code Treatment Minutes: 49 Total Treatment Time: 58 Procedures billed for this date of service:: eval med cold pack EVALUATION COMPLEXITY LEVEL EVALUATION COMPLEXITY LEVEL: HISTORY: Medium (COPD, HTN, OA), EXAM OF BODY SYSTEMS: Medium (ROM, strength, pain, gait, ), CLINICAL PRESENTATION: Medium, CLINICAL DECISION MAKING: Medium Assessment Assessment: pt presents with significant pain in L medial knee and posterior thigh. pt with decreased strength and ROM Lknee. pt gait is limited due to L knee pain which also decreases balance. Feel pt would benefit from skilled PT for therex for strengthening, balance gait training as well as gentle stretching in hamstring on LLE. Patient Education: Home Exercise Program, Education of Plan of Care Rehab Potential: Good Short Term Goals Goal #1: pt independent with initial HEP Goal to be met by: 04/09/18 Goal #2: L knee ROM flex 100 ext -10 Goal to be met by: 04/09/18 Goal #3: L knee quad strength 4-/5 Goal to be met by: 04/09/18 Goal #4: pt amb in dept with AD with improved sequencing and decreased pain. Goal to be met by: 04/09/18 Senior Living Goals Goal #1: pt amb community distances with AAD with decreased pain. Goal to be met by: 04/23/18 Goal #2: pt independent with HEP to continue after dc to maintain gains Goal to be met by: 04/23/18 Goal #3: Improve L knee flex 105 ext -5 Goal to be met by: 04/23/18 Goal #4: Improve L LE strength to 4/5 to improve ability to perform tasks at home Goal to be met by: 04/23/18 Plan - Treatment to be Provided Procedures: Therapeutic Exercises, Therapeutic Activity, Manual Therapy, Patient Education Modalities: Electrical Stimulation, Cryotherapy, Hot Packs - Treatment Plan Frequency: 2 X week Duration: 4 weeks ORDER # VISITS AND/OR THROUGH DATE: 04/23/18 - Treatment Code (1) Difficulty walking Code(s): R26.2 - DIFFICULTY IN WALKING, NOT ELSEWHERE CLASSIFIED (2) Muscle weakness Code(s): M62.81 - MUSCLE WEAKNESS (GENERALIZED) (3) Knee joint effusion Qualifiers: Laterality: left Qualified Code(s): M25.462 - Effusion, left knee (4) Knee pain Code(s): M25.569 - PAIN IN UNSPECIFIED KNEE Qualifiers: Chronicity: chronic Laterality: left Qualified Code(s): M25.562 - Pain in left knee; G89.29 - Other chronic pain (5) Osteoarthritis Code(s): M19.90 - UNSPECIFIED OSTEOARTHRITIS, UNSPECIFIED SITE
--- NOTE | 2018-03-28 10:10 | RS.OPPTDN ---
Subjective Date of Note: 03/28/18 Visit #: 2 Date of Evaluation: 03/26/18 Payer Source: MEDICARE Treatment Diagnosis: chronic pain L knee Current Subjective/complaints:: Patient reports trying to walk more at home , but feels he may have walked too much this morning.He is tender to light touch.Discussed with supervising PT about utilizing ultrasound also to the L knee.She is OK with including this in the POC. *Precautions: n/a Pain Assessment - Pain Description Pain Location: L knee Pain Description: Sharp, Dull, Aching, Chronic Current Pain Intensity: 8-9/10 - Treatment Modality: Ultrasound Parameters/Method Applied: 10 mins. @ 1.5 w/cm2 ,continuous mode to the medial aspect of the L knee. Patient Position: Supine - Heat/Cryotherapy Treatment: Cryotherapy (15 mins. after exercises and US) Interventions - Exercise/Activities/Manual Therapy Exercises/Activities: 15 mins. total pt performed QS, ,then AAROM for heelslides ,hip abd/add,SAQ's(avoiding terminal knee extension) Total minutes of Exercise: 15 Manual Therapy: NA Total minutes of Manual Therapy: 0 HOME EXERCISE PROGRAM: pt given written HEP including AP, QS, HS, hip abd, LAQ, hamstring stretch - Charges Timed Code Treatment Minutes: 25 Total Treatment Time: 40 Procedures billed for this date of service:: ex,US,cp Assessment: Patient tolerates exercises poorly today due to pain ,has muscle guarding present ,requires tactile /verbal cues for technique.We discussed to avoid sharp pain when doing HEP.L knee termnal extension elicits pain consistently.He can benefit from education regarding isometrics as opposed to resistive exercises. Patient Education: Education of diagnosis, Body/Joint mechanics, Home Exercise Program, Home Safety, Activity Modification, Education of Plan of Care Short Term Goals Goal #1: pt independent with initial HEP Goal to be met by: 04/09/18 Progress towards Goal:: No Change Goal #2: L knee ROM flex 100 ext -10 Goal to be met by: 04/09/18 Goal #3: L knee quad strength 4-/5 Goal to be met by: 04/09/18 Goal #4: pt amb in dept with AD with improved sequencing and decreased pain. Goal to be met by: 04/09/18 Circulation Crew Leader Goals Goal #1: pt amb community distances with AAD with decreased pain. Goal to be met by: 04/23/18 Goal #2: pt independent with HEP to continue after dc to maintain gains Goal to be met by: 04/23/18 Goal #3: Improve L knee flex 105 ext -5 Goal to be met by: 04/23/18 Goal #4: Improve L LE strength to 4/5 to improve ability to perform tasks at home Goal to be met by: 04/23/18 Plan PLAN OF CARE EXPIRES ON:: 04/23/18 ORDER # VISITS AND/OR THROUGH DATE: 04/23/18 PLAN: Continue PT to reduce /elminate L knee pain,educate patient regarding joint protection.
--- NOTE | 2018-03-28 11:45 | RS.CSNOTE ---
PT Case Note Date of Note: 03/28/18 Note: Addedum to POC to add ultrasound to POC to decrease pain and inflammation
--- NOTE | 2018-03-31 09:14 | RS.OPPTDC ---
Date of Discharge: 03/28/18 Date of Evaluation: 03/26/18 Number of Visits: 2 Treatment Diagnosis: chronic pain L knee Current Level of Function: pt continues with decreased ROM L knee, pain in L knee. ROM has not improved, no change in level of function since eval. Current Complaints/Gains: Patient called in and stated therapy was making his knee hurt worse and he wanted to be DC. pt has only seen for eval and 1 visit, so no goals met. Pain Assessment - Pain Description Pain Location: L knee Pain Description: Sharp, Aching Current Pain Intensity: 8 Functional Outcome Measure LE Functional Scale: 7 - G Codes & Severity Modifier G Codes & Modifier: mobility walking and moving around: DC CM. mobility walking and moving around: goal CL Source of G Code score: LE functional index Observation - Observation Posture: Forward Head, Rounded Shoulders Handedness: Right Gait - Gait Pattern General Gait Pattern Observation: Antalgic Gait, Decrease Stride Lngth (R), Decrease Stride Lngth (L), Lateral Trunk Lean Gait Comments: pt amb with decreased step length, flexed posture, increased lat sway Interventions - Exercise/Activities/Manual Therapy Exercises/Activities: na Manual Therapy: NA HOME EXERCISE PROGRAM: pt given written HEP including AP, QS, HS, hip abd, LAQ, hamstring stretch - Charges Timed Code Treatment Minutes: n/a Total Treatment Time: n/a Procedures billed for this date of service:: n/a Assessment Assessment: pt did not meet goals due to pt request to be dc from PT. pt only seen for eval and 1 visit. pt continues with intractable pain L knee, decreased strength, decreased ROM. Patient Education: Home Exercise Program, Education of Plan of Care Rehab Potential: Poor Short Term Goals Goal #1: pt independent with initial HEP Goal to be met by: 04/09/18 Progress towards Goal:: No Change Goal #2: L knee ROM flex 100 ext -10 Goal to be met by: 04/09/18 Progress towards Goal:: No Change Goal #3: L knee quad strength 4-/5 Goal to be met by: 04/09/18 Progress towards Goal:: No Change Goal #4: pt amb in dept with AD with improved sequencing and decreased pain. Goal to be met by: 04/09/18 Progress towards Goal:: No Change Longterm Goals Goal #1: pt amb community distances with AAD with decreased pain. Goal to be met by: 04/23/18 Progress towards goal: Not Met Goal #2: pt independent with HEP to continue after dc to maintain gains Goal to be met by: 04/23/18 Progress towards goal: Not Met Goal #3: Improve L knee flex 105 ext -5 Goal to be met by: 04/23/18 Progress towards goal: Not Met Goal #4: Improve L LE strength to 4/5 to improve ability to perform tasks at home Goal to be met by: 04/23/18 Progress towards goal: Not Met Plan Comments: pt request to be dc
== END 2018-04-13 23:59 ==
PROVIDERS: ATTEND Nurse Practitioner Family
DX: M25.562 Pain in left knee (principal); G89.29 Other chronic pain

== ENCOUNTER 2018-10-21 11:04 | Outpatient (CLI) ==
[2012-12-25 12:03] VITALS: TEMP 98.8
== END 2018-10-21 11:05 | disposition home or self-care (01) ==
LOC: RHC-LAB 11:04
PROVIDERS: ATTEND Nurse Practitioner Family
DX: Z51.81 Encounter for therapeutic drug level monitoring (principal); E78.5 Hyperlipidemia, unspecified; I10 Essential (primary) hypertension; Z79.899 Other long term (current) drug therapy
CPT/HCPCS: 36415; 80053; 80061; 85007; 85025

== ENCOUNTER 2018-11-04 08:45 | Outpatient (CLI) ==
[2012-12-25 12:03] VITALS: TEMP 98.8
--- NOTE | 2018-11-04 11:14 | MRI ---
Examination: MRI of the cervical spine without contrast 11/04/2018 Clinical information: Cervical degenerative disc disease. Comparison: Cervical spine radiographs 04/01/2015. TECHNIQUE: Sagittal and axial T1 and T2W imaging, sagittal STIR, coronal T2 and axial 3-D T2W sequen shanda were performed. FINDINGS: The craniocervical junction is unremarkable. The cervical spinal cord is normal in overall signal, size and morphology. The cervical vertebral bodies are normal in height, AP alignment and i ntrinsic marrow signal intensity. There is C4-C5 through C6-C7 ventral spondylosis. Large ventral o steophytes at C5-6 and C6-C7. No significant loss of disc height. No abnormal marrow edema. No par avertebral edema is seen. Examination somewhat limited by poor [id number] due to patient body h abitus. There is a 16 mm Thornwaldt cyst within the midline posterior nasopharynx. At the C2-C3 level, there is a minor dorsal spondylotic ridge eccentric left. No central spinal delio l stenosis. No foraminal stenosis. At the C3-C4 level, there is a lobular posterior disc/osteophyte complex eccentric left which indents the cord causing moderate central spinal canal stenosis. There is moderate bilateral hypertrophic f acet arthropathy. There is severe bilateral foraminal stenosis due to facet and uncovertebral hypert rophy. At the C4-C5 level, there is a broad-based posterior disc/osteophyte complex which flattens the cord. Slight thickening of the ligamentum flavum. Mild-moderate central spinal canal stenosis. There is moderate bilateral hypertrophic facet arthropathy. There is severe left and moderate right foramina l stenosis due to facet and uncovertebral hypertrophy. At the C5-6 level, there is a broad-based posterior disc/osteophyte complex which contacts and flatte ns the cord causing mild-moderate central spinal canal stenosis. There is moderate bilateral hypertr ophic facet arthropathy. There is severe right greater than left foraminal stenosis due to facet and uncovertebral hypertrophy. At the C6-C7 level, there is a broad-based disc bulge which effaces the ventral CSF space causing mil d central spinal canal stenosis. There is mild bilateral hypertrophic facet arthropathy. There is m oderate right neural foraminal stenosis due to facet and uncovertebral hypertrophy. At the C7-T1 level, there is moderate bilateral hypertrophic facet arthropathy. No central spinal ca nal stenosis or foraminal stenosis. Impression: 1. Multilevel degenerative spondylosis with dorsal spondylotic ridging. Moderate C3-C4, mild-modera te C4-C5, mild-moderate C5-6 and mild C6-C7 central spinal canal stenosis. Posterior disc/osteophyte complexes at C3-C4, C4-C5 and C5-6 deform the cord. 2. Multilevel foraminal stenosis as noted level by level. 3. Multilevel facet hypertrophy. 4. Prominent ventral osteophytes at C5-6 and C6-C7.
--- NOTE | 2018-11-04 11:51 | MRI ---
Examination: MRI of the lumbar spine without contrast 11/04/2018 Clinical information: Lumbar degenerative disc disease. Comparison: 07/01/2014. TECHNIQUE: Sagittal and axial T1 and T2W imaging, sagittal STIR and coronal T2W sequences were perfo rmed. FINDINGS: Examination. Some limited by diminished signal noise due to patient body habitus. The co nus medullaris is normal in location and morphology terminating at the L1-L2 vertebral body level. T he lumbar vertebrae are normal in height and AP alignment. There is multilevel thoracolumbar ventral spondylosis. The superior endplate of S1 is slightly smaller than the inferior endplate of L5, a de velopmental variation. No significant loss of disc height. Minor L2-L3 disc desiccation. Minimal c hronic anterior wedge deformity of T12. There is no lumbar vertebral body compression fracture or ab normal marrow edema. There is a superior pole left renal cyst. At the T11-T12 level, there is a diffuse spondylotic disc bulge. There is right greater than left fa cet hypertrophy. No central spinal canal stenosis. There is no overt foraminal stenosis. T12-L1 level, there is a diffuse disc bulge. Ventral spondylosis. There is no central spinal canal stenosis or foraminal stenosis. At the L1-L2 level, there is a minimal disc bulge eccentric right. There is mild left greater than r ight facet hypertrophy. No central spinal canal stenosis or foraminal stenosis. At the L2-L3 level, there is a diffuse disc bulge. Minor facet hypertrophy. No central spinal canal stenosis or foraminal stenosis. At the L3-L4 level, there is a diffuse disc bulge eccentric right. Mild bilateral hypertrophic facet arthropathy. No significant central spinal canal stenosis. There is mild right greater than left f oraminal stenosis. At the L4-L5 level, there is a diffuse disc bulge. There is mild bilateral facet hypertrophy. No si gnificant central spinal canal stenosis. There is moderate right and mild-moderate left foraminal st enosis. At the L5-S1 level, there is a diffuse spondylotic disc bulge. Mild hypertrophic facet arthropathy. No significant central spinal canal stenosis. There is mild-moderate bilateral foraminal stenosis. Minimally increased multilevel foraminal stenosis compared to prior exam. Otherwise, no significant interval change. Impression: 1. No focal disc herniation or significant central spinal canal stenosis. 2. Mild bilateral L3-L4, moderate right L4-L5, mild-moderate left L4-L5 and mild-moderate bilateral L5-S1 foraminal stenosis. 3. Multilevel thoracolumbar ventral spondylosis. 4. Minor chronic anterior wedge deformity of T12.
--- NOTE | 2018-11-04 13:23 | DI ---
EXAM: Lumbar spine three view HISTORY: Degenerative disc disease COMPARISON: 07/21/2012 TECHNIQUE: Three views lumbar spine were performed FINDINGS: Sacroiliac joints intact. Vertebral bodies in height. No fracture. No subluxation. Mul tilevel marginal osteophyte formation. Mild multilevel intervertebral disc space narrowing. Multile magda facet arthrosis that is greatest in the lower spine. Mild fecal retention in the colon. IMPRESSION: Chronic discogenic degenerative disease and facet arthrosis.
--- NOTE | 2018-11-04 13:30 | DI ---
EXAM: Cervical spine three view HISTORY: Degenerative disc disease COMPARISON: None TECHNIQUE: Three views cervical spine were performed FINDINGS: C5 partially obscured and C6 and C7 obscured on the lateral view. Visualized vertebral evelyn dies normal height. Multilevel marginal osteophyte formation, greatest in the lower cervical spine, partially obscured. It is difficult to assess intervertebral disc spaces in this region. Multilevel facet and uncovertebral hypertrophy. Prevertebral soft tissues appear normal. Atherosclerotic collier tid calcifications on the right. IMPRESSION: 1. Limited examination. C5-C7 obscured. 2. Chronic discogenic degenerative disease and facet arthrosis.
== END 2018-11-04 08:46 | disposition home or self-care (01) ==
LOC: RAD 08:45
PROVIDERS: ATTEND Pain Medicine Interventional Pain Medicine
DX: M51.36 Other intervertebral disc degeneration, lumbar region (principal); M51.37 Other intervertebral disc degeneration, lumbosacral region; M47.816 Spondylosis without myelopathy or radiculopathy, lumbar region; M47.817 Spondylosis without myelopathy or radiculopathy, lumbosacral region; M50.31 Other cervical disc degeneration, high cervical region; M50.321 Other cervical disc degeneration at C4-C5 level; M50.322 Other cervical disc degeneration at C5-C6 level; M50.323 Other cervical disc degeneration at C6-C7 level; M50.33 Other cervical disc degeneration, cervicothoracic region; M47.812 Spondylosis without myelopathy or radiculopathy, cervical region; M47.813 Spondylosis without myelopathy or radiculopathy, cervicothoracic region

== ENCOUNTER 2018-11-25 08:24 | Outpatient (CLI) | payer OTHER ==
[2012-12-25 12:03] VITALS: TEMP 98.8
== END 2018-11-25 08:25 | disposition home or self-care (01) ==
LOC: LAB 08:24
PROVIDERS: ATTEND Nurse Practitioner Family
DX: E87.1 Hypo-osmolality and hyponatremia (principal)
CPT/HCPCS: 36415; 80053

== ENCOUNTER 2019-01-01 12:49 | Outpatient (CLI) ==
[2012-12-25 12:03] VITALS: TEMP 98.8
== END 2019-01-01 12:50 | disposition home or self-care (01) ==
LOC: RHC-LAB 12:49
PROVIDERS: ATTEND Nurse Practitioner Family
DX: E87.1 Hypo-osmolality and hyponatremia (principal); I10 Essential (primary) hypertension
CPT/HCPCS: 36415; 80053; 85025

== ENCOUNTER 2019-01-05 09:34 | Outpatient (CLI) ==
[2012-12-25 12:03] VITALS: TEMP 98.8
[2019-01-01 15:36] VITALS: BMI 54.1
== END 2019-01-05 09:35 | disposition home or self-care (01) ==
LOC: LAB 09:34
PROVIDERS: ATTEND Family Medicine
DX: E87.1 Hypo-osmolality and hyponatremia (principal)
CPT/HCPCS: 36415; 80053

== ENCOUNTER 2019-01-08 09:01 | Outpatient (CLI) | payer OTHER ==
[2012-12-25 12:03] VITALS: TEMP 98.8
[2019-01-01 15:36] VITALS: BMI 54.1
== END 2019-01-08 09:02 | disposition home or self-care (01) ==
LOC: CAR 09:01
PROVIDERS: ATTEND Family Medicine
DX: J44.9 Chronic obstructive pulmonary disease, unspecified (principal); G47.30 Sleep apnea, unspecified; Z72.0 Tobacco use
CPT/HCPCS: 94761

== ENCOUNTER 2019-09-30 11:32 | Observation (INO) ==
[2019-09-30] MEDS ORDERED: SODIUM CHLORIDE 1,000 ML IV STA (11:44)
[2019-09-30 12:04] LABS: HEMATOCRIT 37.2 % (42.0-52.0)
--- NOTE | 2019-09-30 13:50 | CT ---
EXAM: CT ABDOMEN AND PELVIS HISTORY: Lower abdominal pain, blood in stools TECHNIQUE: CT abdomen and pelvis with intravenous contrast. Images were reconstructed using 5 mm se ction thickness. Reformations were prepared. mL Omnipaque. COMPARISON: 12/14/2014 FINDINGS: Liver and spleen within normal limits. Gallbladder is absent. Pancreas and adrenal glands are unrem arkable. A few renal cysts are suggested. Largest on the left at 3.2 cm. No hydronephrosis. There is mild atherosclerotic disease. Stomach is within normal limits. What may represent the appendix has no evidence of inflammation. T here is no evidence of bowel obstruction. Moderate mucosal thickening and adjacent mild fat strandin g is seen along the more distal aspect of the transverse colon and the descending colon. There is no ascites or free air. Urinary bladder and prostate are within normal limits. No abdominal wall hernia. The bones reveal osteophytic spurring of the spine and arthropathy of the sacroiliac joints. Lung bases are clear. IMPRESSION: 1. Findings most consistent with moderate active colitis involving the transverse and descending col on. This is most likely either infectious or inflammatory in nature. Less likely ischemic. 2. Mild atherosclerotic disease. 3. Renal cysts.
--- NOTE | 2019-09-30 16:07 | ED.PDOC ---
General ED Provider: Dr. MICHAEL ANTHONY Chief Complaint: GI Bleed Stated Complaint: Weak, lightheaded, fell yesterday off toilet after normal stool. Subsequently had several passages of bright red blood per rectum without stool. Now has diffuse abdominal pain. No history of rectal bleed Time Seen by Physician: 16:50 Mode of Arrival: Ambulance Information Source: Patient Nursing and Triage Documentation Reviewed and Agree: Yes Does patient meet sepsis criteria?: No System Inflammatory Response Syndrome: Not Applicable Sepsis Protocol: For patient's 13 years and over: Temp is 96.8 and below OR 101 and greater Pulse >90 BPM Resp >20/minute Acutely Altered Mental Status Are patient's symptoms suggestive of a new infection, such as: -Pneumonia -Skin, Soft Tissue -Endocarditis -UTI -Bone, Joint Infection -Implantable Device -Acute Abdominal Infection -Wound Infection -Meningitis -Blood Stream Catheter Infection -Unknown Review of Systems Review Of Systems Constitutional: Reports Weakness Respiratory: Reports No symptoms; Denies Cough Cardiac: Reports No symptoms; Denies Chest pain GI: Reports Rectal bleeding (Yesterday) All Other Systems: Reviewed and Negative [facility] Medical History Anxiety Depression Hypertension Personal history of mental disorder Personal history of musculoskeletal disorder Family History Mother Cerebrovascular accident BROTHER Cerebrovascular accident FATHER Chronic mental illness Social History Smoking and tobacco status: Current every day smoker Smoking risk assessment performed: Yes Alcohol intake: never Counseling given: No Substance use type: does not use Counseling given: No Special audelia needs: No Agree to transfusion: Yes Household members: none Marital status: D Lives independently: Yes service: No shelter: No Current occupational status: disabled History of recent travel: No Do you think of yourself as: straight/heterosexual Current gender identity: male Physical Exam Physical Exam Appearance: Reports Well-appearing Ill-appearing: None Pain Distress: None Eyes: Reports BIMAL, EOMI and Conjunctiva clear ENT: Reports Nose normal and Oropharynx normal Neck: Supple Respiratory: Reports Airway patent, Breath sounds clear and Breath sounds equal Cardiovascular: Reports RRR and Pulses normal GI/: Reports Soft, Nontender and Bowel sounds normal Musculoskeletal: Reports Normal strength, ROM intact and No edema Skin: Reports Warm, Dry and Normal color Neurological: Reports Sensation intact, Motor intact, Alert and Oriented Psychiatric: Reports Affect appropriate and Mood appropriate Re-Evaluation Re-Evaluation Time of Re-Evaluation: 14:55 Status: Improved Vital Signs Stable: Yes Appearance: NAD Skin: Warm and Dry Neuro: Alert and Oriented X3 Additional Comments: Discussed his low sodium level; high WBC count, BP on arrival (low) with immediate response to IV fluids. Best to remain overnight for observation Physician Notification Case Discussed Physician Notified: Keysha; Hospitalist; OBS Time of Notification: 15:00 Critical Care Note Critical Care Note Total Time (mins): 35 Comments: Eval of clinical picture/hx yesterday with rectal bleeding. Labs, CT Scan - response to treatment, discussion with Hospitalist and decision to admit for Observaiton Course Course Hematology/Chemistry: 09/30/19 12:00 09/30/19 12:00 Orders, Labs, Meds: Lab Review 09/30/19 09/30/19 09/30/19 12:00 12:00 12:00 WBC 18.18 H RBC 4.72 Hgb 13.3 L Hct 37.2 L MCV 78.8 L MCH 28.2 MCHC 35.8 H RDW Coeff of Mackenzie 12.7 Plt Count 206 Immature Gran % (Auto) 0.8 Neut % (Auto) 81.0 H Lymph % (Auto) 9.1 L [place] % (Auto) 8.7 Eos % (Auto) 0.2 Baso % (Auto) 0.2 Immature Gran # (Auto) 0.2 Neut # (Auto) 14.7 H Lymph # (Auto) 1.7 [place] # (Auto) 1.6 Eos # (Auto) 0.0 Baso # (Auto) 0.0 PT 10.1 INR 1.03 APTT 31.2 Sodium 116.2 L* Potassium 4.11 Chloride 81.8 L Carbon Dioxide 22.2 Anion Gap 16.31 BUN 11.9 Creatinine 1.73 H Estimated GFR (MDRD) 42.00 BUN/Creatinine Ratio 6.87 Glucose 100.1 Calcium 8.90 Total Bilirubin 0.51 AST 34.7 ALT 26.3 Alkaline Phosphatase 74.1 Total Protein 6.67 Albumin 3.96 Globulin 2.71 Albumin/Globulin Ratio 1.46 Stl Occult Blood (IFOB) Stool Occult Blood #2 Stool Occult Blood #3 09/30/19 15:08 WBC RBC Hgb Hct MCV MCH MCHC RDW Coeff of [place]enzie Plt Count Immature Gran % (Auto) Neut % (Auto) Lymph % (Auto) [place] % (Auto) Eos % (Auto) Baso % (Auto) Immature Gran # (Auto) Neut # (Auto) Lymph # (Auto) [place] # (Auto) Eos # (Auto) Baso # (Auto) PT INR APTT Sodium Potassium Chloride Carbon Dioxide Anion Gap BUN Creatinine Estimated GFR (MDRD) BUN/Creatinine Ratio Glucose Calcium Total Bilirubin AST ALT Alkaline Phosphatase Total Protein Albumin Globulin Albumin/Globulin Ratio Stl Occult Blood (IFOB) Positive Stool Occult Blood #2 No specimen received Stool Occult Blood #3 No specimen received Orders Category Date Time Status INTAKE & OUTPUT Q8HR CARE 09/30/19 16:03 Active NPO REMINDER: IMAGING ONCE CARE 09/30/19 12:04 Completed VITAL SIGNS Q8HR CARE 09/30/19 16:03 Active REGULAR DIET DIETARY 09/30/19 Dinner Ordered CBC W/ AUTO DIFF DAILY@0600 LAB 10/01/19 06:00 Ordered CBC W/ AUTO DIFF DAILY@0600 LAB 10/02/19 06:00 Ordered CBC W/ AUTO DIFF Stat LAB 09/30/19 12:00 Completed COMPREHENSIVE METABOLIC PANEL DAILY@0600 LAB 10/01/19 06:00 Ordered COMPREHENSIVE METABOLIC PANEL DAILY@0600 LAB 10/02/19 06:00 Ordered COMPREHENSIVE METABOLIC PANEL Stat LAB 09/30/19 12:00 Completed OCCULT BLOOD, STOOL Stat LAB 09/30/19 15:08 Completed PARTIAL THROMBOPLASTIN TIME Stat LAB 09/30/19 12:00 Completed PT WITH INR Stat LAB 09/30/19 12:00 Completed Sodium Chloride 0.9% [Sodium Chloride] 1,000 ml MEDS 09/30/19 16:30 Active IV 75 mls/hr Sodium Chloride 0.9% [Sodium Chloride] 1,000 ml MEDS 09/30/19 11:44 Discontin ued IV BOLUS RESUSCITATION STATUS Routine OTHERS 09/30/19 16:[address] ABDOMEN/PELVIS W CONTRAST Stat RADS 09/30/19 12:03 Completed Medications Generic Name Dose Route Start Last Admin Trade Name Freq PRN Reason Stop Dose Admin Sodium Chloride 1,000 mls @ 75 mls/hr 03/18/20 16:30 Sodium Chloride IV .[id number] CHRISTINA Discontinued Medications Generic Name Dose Route Start Last Admin Trade Name Freq PRN Reason Stop Dose Admin Sodium Chloride 1,000 mls @ 1,000 mls/hr 09/30/19 11:44 09/30/19 11:51 Sodium Chloride IV 09/30/19 12:43 1,000 mls/hr BOLUS STA Administration Vital Signs: Temp Pulse Resp BP Pulse Ox 09/30/19 11:33 97.5 F L 88 18 68/54 L 100 Discharge Plan Discharge Patient Disposition: PLACED OBSERVATION Discharge Problem: Acute hypotension, Colitis, Bright red rectal bleeding ED Provider: MICHAEL ANTHONY Condition: Stable Discharge Date/Time: 09/30/19 16:22
[2019-09-30] MEDS ORDERED: SODIUM CHLORIDE 1,000 ML IV SCH (16:30)
[2019-09-30 16:53] VITALS: BMI 47.1
[2019-09-30] MEDS ORDERED: ATIVAN IVP PRN (17:24)
[2019-09-30 18:05] LABS: HEMATOCRIT 37.7 % (42.0-52.0)
[2019-09-30] MEDS: NON-FORMULARY MEDICATION (Lisinopril [Lisinopril] 40 MG) PO SCH (21:36)
[2019-09-30] MEDS: OXCARBAZEPINE 900 MG PO SCH (21:36)
[2019-09-30] MEDS: NON-FORMULARY MEDICATION (Clonazepam [Clonazepam] 1 MG) PO SCH (21:36)
[2019-09-30] MEDS: QUETIAPINE 600 MG PO SCH (21:37)
[2019-09-30] MEDS: NON-FORMULARY MEDICATION (Zolpidem [Ambien] 10 MG) PO SCH (21:37)
[2019-10-01] MEDS: SODIUM CHLORIDE 1,000 ML IV SCH ×3 (03:24→17:05)
[2019-10-01] MEDS: CIPRO PO SCH ×2 (05:18→21:25)
[2019-10-01] MEDS: FLAGYL 500 MG/100 ML 500 MG/100 ML BAG IV SCH ×3 (05:18→17:05)
[2019-10-01 05:34] LABS: HEMATOCRIT 33.8 % (42.0-52.0)
[2019-10-01] MEDS: NON-FORMULARY MEDICATION (Clonazepam [Clonazepam] 1 MG) PO SCH ×3 (08:36→21:25)
[2019-10-01] MEDS: AMLODIPINE 5 MG PO SCH (08:36)
[2019-10-01] MEDS: NON-FORMULARY MEDICATION (Simvastatin [Simvastatin] 20 MG) PO SCH (08:36)
[2019-10-01] MEDS: NON-FORMULARY MEDICATION (Lisinopril [Lisinopril] 40 MG) PO SCH ×2 (08:37→21:26)
[2019-10-01] MEDS: OXCARBAZEPINE 900 MG PO SCH ×2 (08:37→21:26)
[2019-10-01] MEDS: ATOMOXETINE 80 MG PO SCH (08:37)
[2019-10-01] MEDS: UMECLIDINIUM IH SCH (08:46)
--- NOTE | 2019-10-01 09:46 | PCM ---
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 ER 09/30/2019 11:32 for c/o's dizziness w/ history of falling 09/29/2019 07:30 at home after sitting on toilet to urinate for several minutes causing numbness, tingling, and weakness in both of his BLE. Notes that he rolled forward on his forearms and lower belly w/o hitting his head, LOC, or other known injury. He then got up and had to have a BM, which was moderate amount of bright red liquid w/o blood clots. He then had intermittent episodes occuring as frequently as every 3-4 minutes 12 plus hours. He had no further bleeding, but awakened the AM of admission feeling dizzy when he went to stand up and experienced severe generalized weakness w/ "dangerously low BP when checked by the paramedics. Upon ER arrival he noted diffuse abdominal pain w/ 1-2 episodes of undescribed diarrhea in the ER. He denies F/C, SOB, ZAVALETA, CP, palpitations, swelling, active rectal bleeding, constipation, or diarrhea. His appetite is good w/o N/V, dysuria, or other complaints. He is just wanting to go home. However, CT scan of abd/pelvis w/ contrast revealed findings most consistent with moderate active colitis involving the transverse and descending colon that is most likely either infectious or inflammatory in nature; less likely ischemic; Mild atherosclerotic disease; and Renal cysts. Patient notes some intermittent constipation at home and takes Miralax prn w/ relief; denies previous hx history rectal bleeding. Admission & this early AM labs reveal improving elevated WBC's 18.8 to 13.93; H/H 13.3/37.2 to 11.9/33.8 and Creatinine improved 1.73 to 1.13 H w/ hydration; Na+ significantly low 116.2 and improved w/ 500ml PO fluid restriction and gentle NS IVF (also affected by large fluid intake probably influenced daily at home by oxycarbazepine & possibly Seroquel. Chloride was also low 81.8 to 87.7 w/ normal AGAP 16.3 to 14.33 and BUN normal 11.9 to 11.3; normal LFT's; and Stool for occult blood in ER positive w/ no BM's since then for testing. Patient was found hypotensive 68/54 P 88 and bolused w/ 1L 0.9% NS w/ immediate improvement to 132/[address] Heaton, Supervisor Cd Area, did a routine colonoscopy in the last few years (date unknown); colonoscopy had 4 polpys biopsied w/ negative results. Patient was admitted as observation for Colitis, Hypotension, and Rectal bleeding for IVF replacement, monitoring labs, PPI, and Colitis ATB therapy. Patient confirmed Full Code states as per ACLS protocol review. Patient is stable this AM w/o pain, N/V, any stools, and voiding w/o complaints. 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 w/ BLE going numb from sitting awhile causing weakness and falling forward--see HPI.); Denies fever, chills, sweats, fatigue and loss of appetite Eyes: Denies blurred vision, double-vision, discharge, itching, pain and redness Ears: Denies pain, bleeding, drainage, ringing and hearing loss Nose: Denies bleeding, congestion and discharge Throat: Reports other; Denies pain, swelling and voice change Mouth: Denies bleeding, pain and swelling Respiratory: Denies cough, shortness of air, wheeze, hemoptysis and pain with breathing Cardiovascular: Reports orthopnea (usual 2 pillow orthopnea); Denies chest pain, left arm pain, diaphoresis, PND, edema, palpitations and syncope Gastrointestinal: Reports diarrhea, hematochezia (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 Last BM 09/30/2019 normal per patient.); Denies abdominal pain, nausea, vomiting, melena, hematemesis and dysphagia Genitourinary: Denies dysuria, hematuria, frequency, incontinence, flank pain, penile discharge, testicular pain and testicular swelling Neurological: Reports dizziness and weakness (see HPI; denies any weakness at present.); Denies headache, seizure, numbness, speech difficulty, problems with walking, tremor and fainting Musculoskeletal: Reports pain (generalized arthritis pain w/ pain meds. ); Denies swelling in joints Skin: Denies rash, pruritus, lacerations, wounds and bruising Hematology: Denies easy bruising, easy bleeding and swollen glands Endocrine: Denies weight changes, cold intolerance, heat intolerance, excessive thirst, excessive hunger and polyuria Psychiatric: Reports depression (controlled w/ meds ) and anxiety; Denies sleeplessness, hopelessness, suicidal and hallucinations Habits: Reports tobacco use (1PPD X 30yrs); Denies substance use, alcohol use and other Allergies Allergies Allergy/AdvReac Type Severity Reaction Status Date / Time sulfamethoxazole Allergy Mild itch Verified 09/30/19 11:41 [From Bactrim] trimethoprim [From Bactrim] Allergy Mild itch Verified 09/30/19 11:41 [facility] Medical History (Updated 10/01/19 @ 16:16 by PASCUAL BHANDARI) Depression with anxiety (Acute) Hypertension Personal history of mental disorder Personal history of musculoskeletal disorder Surgical History (Updated 10/01/19 @ 09:37 by PASCUAL BHANDARI) History of joint surgery History of musculoskeletal system surgery History of respiratory system surgery Status post cholecystectomy Status post hernia repair Status post tonsillectomy and adenoidectomy Family History Mother Cerebrovascular accident BROTHER Suicide FATHER Chronic mental illness SISTER Cerebrovascular accident Social History (Updated 10/01/19 @ 14:10 by PASCUAL BHANDARI) Smoking and tobacco status: Current every day smoker Tobacco: How many years used: 40 Quit status: not considering quitting Smoking risk assessment performed: Yes Alcohol intake: never Counseling given: No Details: No ETOH for over 4 yrs; "too risky w/ my medications." Substance use type: does not use Counseling given: No Special audelia needs: No Agree to transfusion: Yes Household members: none Housing: apartment Marital status: D Lives independently: Yes Number of children: 1 Number of grandchildren: 4 Highest education level completed: 8th grade service: No long term: No Current occupational status: disabled History of recent travel: No Do you think of yourself as: straight/heterosexual Current gender identity: male Medications Medications: Medications Generic Name Dose Route Start Last Admin Trade Name Freq PRN Reason Stop Dose Admin Ciprofloxacin 500 mg 10/01/19 06:00 10/01/19 05:18 Cipro PO 10/04/19 05:59 500 mg BIDCIPRO CHRISTINA Administration Sodium Chloride 1,000 mls @ 100 mls/hr 09/30/19 23:43 10/01/19 05:22 Sodium Chloride IV 100 mls/hr .Q10H CHRISTINA Administration Metronidazole 500 mg in 100 mls @ 100 mls/hr 10/01/19 06:00 10/01/19 05:18 Flagyl 500 Mg/100 Ml IV 10/04/19 05:59 100 mls/hr Q6HR CHRISTINA Administration Lorazepam 1 mg 09/30/19 17:24 Ativan IVP Q2H PRN Seizure Non-Formulary Medication 5 mg 10/01/19 09:00 10/01/19 08:36 Amlodipine [Amlodipine] PO 5 mg DAILY CHRISTINA Administration Non-Formulary Medication 80 mg 10/01/19 09:00 10/01/19 08:37 Atomoxetine [Strattera] PO 80 mg DAILY CHRISTINA Administration Non-Formulary Medication 1 mg 09/30/19 21:00 10/01/19 08:36 Clonazepam [Clonazepam] PO 1 mg TID CHRISTINA Administration Non-Formulary Medication 40 mg 09/30/19 21:00 10/01/19 08:37 Lisinopril [Lisinopril] PO 40 mg BID CHRISTINA Administration Non-Formulary Medication 900 mg 09/30/19 21:00 10/01/19 08:37 Oxcarbazepine [Oxcarbazepine] PO 900 mg BID CHRISTINA Administration Non-Formulary Medication 600 mg 09/30/19 21:00 09/30/19 21:37 Quetiapine [Seroquel] PO 600 mg BEDTIME CHRISTINA Administration Non-Formulary Medication 20 mg 10/01/19 09:00 10/01/19 08:36 Simvastatin [Simvastatin] PO 20 mg DAILY CHRISTINA Administration Non-Formulary Medication 1 inh 10/01/19 09:00 10/01/19 08:46 Umeclidinium [Incruse Ellipta] IH 1 inh DAILY CHRISTINA Administration Non-Formulary Medication 10 mg 09/30/19 21:00 09/30/19 21:37 Zolpidem [Ambien] PO 10 mg BEDTIME CHRISTINA Administration Body Composition Height: 5 ft 11 in Weight: 338 lb 3.025 oz Body Mass Index (BMI): 47.1 Vital Signs Temperature: 98.1 F Pulse Rate: 83 Respiratory Rate: 16 Blood Pressure: 93/60 O2 Sat by Pulse Oximetry: 98 Physical Examination Appearance: Reports Ill-appearing, No pain distress and Obese Ill-appearing: Mild Pain Distress: None (Patient denies.) Eyes: Reports BIMAL, EOMI and Conjunctiva clear ENT: Reports Ears normal, Nose normal and Oropharynx normal; Denies Rhinorrhea, Epistaxis, Erythema and Exudate Neck: Supple Respiratory: Reports Airway patent, Breath sounds clear, Breath sounds equal and Respirations nonlabored; Denies Crackles, Rhonchi, Wheezes and Retractions Cardiovascular: Reports RRR, Pulses normal, No rub and No murmur GI/: Reports Soft (Obesity), Nontender, No masses, Bowel sounds normal and No Organomegaly Musculoskeletal: Reports Normal strength, ROM intact, No edema and No calf tenderness Skin: Reports Warm, Dry and Normal color; Denies Pale, Diaphoretic and Cyanotic Neurological: Reports Sensation intact, Motor intact, Reflexes intact, Cranial nerves intact, Alert and Oriented (X4) Psychiatric: Reports Affect appropriate, Mood appropriate and Anxious (mildly anxious and upset about still being in the hospital; wants to go home as soon as possible and requesting >liquid diet. ); Denies Depressed Lab/Tests/Diagnostic Imaging Lab/Tests/Diagnostic Imaging: Lab Review 09/30/19 09/30/19 09/30/19 12:00 12:00 12:00 WBC 18.18 H RBC 4.72 Hgb 13.3 L Hct 37.2 L MCV 78.8 L MCH 28.2 MCHC 35.8 H RDW Coeff of Mackenzie 12.7 Plt Count 206 Immature Gran % (Auto) 0.8 Neut % (Auto) 81.0 H Lymph % (Auto) 9.1 L [place] % (Auto) 8.7 Eos % (Auto) 0.2 Baso % (Auto) 0.2 Immature Gran # (Auto) 0.2 Neut # (Auto) 14.7 H Lymph # (Auto) 1.7 [place] # (Auto) 1.6 Eos # (Auto) 0.0 Baso # (Auto) 0.0 PT 10.1 INR 1.03 APTT 31.2 Sodium 116.2 L* Potassium 4.11 Chloride 81.8 L Carbon Dioxide 22.2 Anion Gap 16.31 BUN 11.9 Creatinine 1.73 H Estimated GFR (MDRD) 42.00 BUN/Creatinine Ratio 6.87 Glucose 100.1 Calcium 8.90 Total Bilirubin 0.51 AST 34.7 ALT 26.3 Alkaline Phosphatase 74.1 Total Protein 6.67 Albumin 3.96 Globulin 2.71 Albumin/Globulin Ratio 1.46 Stl Occult Blood (IFOB) Stool Occult Blood #2 Stool Occult Blood #3 Blood Type Antibody Screen 09/30/19 09/30/19 09/30/19 12:00 15:08 17:40 WBC RBC Hgb 13.4 L Hct 37.7 L MCV MCH MCHC RDW Coeff of [place] Plt Count Immature Gran % (Auto) Neut % (Auto) Lymph % (Auto) [place] % (Auto) Eos % (Auto) Baso % (Auto) Immature Gran # (Auto) Neut # (Auto) Lymph # (Auto) [place] # (Auto) Eos # (Auto) Baso # (Auto) PT INR APTT Sodium Potassium Chloride Carbon Dioxide Anion Gap BUN Creatinine Estimated GFR (MDRD) BUN/Creatinine Ratio Glucose Calcium Total Bilirubin AST ALT Alkaline Phosphatase Total Protein Albumin Globulin Albumin/Globulin Ratio Stl Occult Blood (IFOB) Positive Stool Occult Blood #2 No specimen received Stool Occult Blood #3 No specimen received Blood Type O POSITIVE Antibody Screen 09/30/19 10/01/19 10/01/19 17:40 05:27 05:27 WBC 13.93 H RBC 4.24 L Hgb 11.9 L Hct 33.8 L MCV 79.7 L MCH 28.1 MCHC 35.2 RDW Coeff of [place] 12.8 Plt Count 184 Immature Gran % (Auto) 0.9 Neut % (Auto) 74.9 Lymph % (Auto) 13.4 [place] % (Auto) 9.2 Eos % (Auto) 1.2 Baso % (Auto) 0.4 Immature Gran # (Auto) 0.1 Neut # (Auto) 10.5 H Lymph # (Auto) 1.9 [place] # (Auto) 1.3 Eos # (Auto) 0.2 Baso # (Auto) 0.1 PT INR APTT Sodium 120.6 L Potassium 3.83 Chloride 87.7 L Carbon Dioxide 22.4 Anion Gap 14.33 BUN 11.3 Creatinine 1.13 H D Estimated GFR (MDRD) 68.00 BUN/Creatinine Ratio 10.00 Glucose 106.5 H Calcium 8.65 Total Bilirubin 0.30 AST 33.7 ALT 24.3 Alkaline Phosphatase 76.7 Total Protein 6.31 Albumin 3.70 Globulin 2.61 Albumin/Globulin Ratio 1.41 Stl Occult Blood (IFOB) Stool Occult Blood #2 Stool Occult Blood #3 Blood Type O POSITIVE Antibody Screen Negative 09/30/2019 CT Abd/Pelvis w/ Contrast: IMPRESSION: 1. Findings most consistent with moderate active colitis involving the transverse and descending colon. This is most likely either infectious or inflammatory in nature. Less likely ischemic. 2. Mild atherosclerotic disease. 3. Renal cysts. Orders Category Date Time Status ADMIT OBSERVATION [PLACE PATIENT OBSERVATION] .TO ADMISSION 09/30/19 16:16 Active MEDSURG (MONITORED BED) OXYGEN PRN CARDIO 10/01/19 00:19 Active GIVE HS SNACK 2100 CARE 09/30/19 23:40 Active INTAKE & OUTPUT Q8HR CARE 09/30/19 16:03 Active NPO REMINDER: IMAGING ONCE CARE 09/30/19 12:04 Completed TELEMETRY MONITORING TELE CARE 09/30/19 16:17 Active VITAL SIGNS Q4HR CARE 09/30/19 16:03 Active FLUID RESTRICTION 500 ML DIETARY 10/01/19 Lunch Ordered HS SNACK DIETARY 09/30/19 Dinner Ordered SOFT LOW FIBER DIETARY 10/01/19 Lunch Ordered CBC W/ AUTO DIFF DAILY@0600 LAB 10/01/19 05:27 Completed CBC W/ AUTO DIFF DAILY@0600 LAB 10/02/19 06:00 Ordered CBC W/ AUTO DIFF Stat LAB 09/30/19 12:00 Completed COMPREHENSIVE METABOLIC PANEL DAILY@0600 LAB 10/01/19 05:27 Completed COMPREHENSIVE METABOLIC PANEL DAILY@0600 LAB 10/02/19 06:00 Ordered COMPREHENSIVE METABOLIC PANEL Stat LAB 09/30/19 12:00 Completed HEMATOCRIT Routine LAB 09/30/19 17:40 Completed HEMOGLOBIN Routine LAB 09/30/19 17:40 Completed OCCULT BLOOD, STOOL Stat LAB 09/30/19 15:08 Completed PARTIAL THROMBOPLASTIN TIME Stat LAB 09/30/19 12:00 Completed PT WITH INR Stat LAB 09/30/19 12:00 Completed TYPE AND SCREEN Routine LAB 09/30/19 17:40 Completed Ciprofloxacin HCl [Cipro] MEDS 10/01/19 06:00 Active 500 mg PO BIDCIPRO Lorazepam Inj [Ativan] MEDS 09/30/19 17:24 Active 1 mg IVP Q2H PRN Metronidazole/Sodium Chloride [Flagyl 500 mg/100 ml] MEDS 10/01/19 06:00 Active 500 mg in 100 ml IV Q6HR Sodium Chloride 0.9% [Sodium Chloride] 1,000 ml MEDS 09/30/19 23:43 Active IV 100 mls/hr Sodium Chloride 0.9% [Sodium Chloride] 1,000 ml MEDS 09/30/19 16:30 Discontinued IV 75 mls/hr Sodium Chloride 0.9% [Sodium Chloride] 1,000 ml MEDS 09/30/19 11:44 Discontinued IV BOLUS amlodipine [amlodipine] MEDS 10/01/19 09:00 Active 5 mg PO DAILY atomoxetine [Strattera] MEDS 10/01/19 09:00 Active 80 mg PO DAILY clonazepam [clonazepam] MEDS 09/30/19 21:00 Active 1 mg PO TID lisinopril [lisinopril] MEDS 09/30/19 21:00 Active 40 mg PO BID oxcarbazepine [oxcarbazepine] MEDS 09/30/19 21:00 Active 900 mg PO BID quetiapine [Seroquel] MEDS 09/30/19 21:00 Active 600 mg PO BEDTIME simvastatin [simvastatin] MEDS 10/01/19 09:00 Active 20 mg PO DAILY umeclidinium [Incruse Ellipta] MEDS 10/01/19 09:00 Active 1 inh IH DAILY zolpidem [Ambien] MEDS 09/30/19 21:00 Active 10 mg PO BEDTIME RESUSCITATION STATUS Routine OTHERS 09/30/19 16:[address] ABDOMEN/PELVIS W CONTRAST Stat RADS 09/30/19 12:03 Completed Medications Generic Name Dose Route Start Last Admin Trade Name Freq PRN Reason Stop Dose Admin Ciprofloxacin 500 mg 10/01/19 06:00 10/01/19 05:18 Cipro PO 10/04/19 05:59 500 mg BIDCIPRO CHRISTINA Administration Sodium Chloride 1,000 mls @ 100 mls/hr 09/30/19 23:43 10/01/19 05:22 Sodium Chloride IV 100 mls/hr .Q10H CHRISTINA Administration Metronidazole 500 mg in 100 mls @ 100 mls/hr 10/01/19 06:00 10/01/19 05:18 Flagyl 500 Mg/100 Ml IV 10/04/19 05:59 100 mls/hr Q6HR CHRISTINA Administration Lorazepam 1 mg 09/30/19 17:24 Ativan IVP Q2H PRN Seizure Non-Formulary Medication 5 mg 10/01/19 09:00 10/01/19 08:36 Amlodipine [Amlodipine] PO 5 mg DAILY CHRISTINA Administration Non-Formulary Medication 80 mg 10/01/19 09:00 10/01/19 08:37 Atomoxetine [Strattera] PO 80 mg DAILY CHRISTINA Administration Non-Formulary Medication 1 mg 09/30/19 21:00 10/01/19 08:36 Clonazepam [Clonazepam] PO 1 mg TID CHRISTINA Administration Non-Formulary Medication 40 mg 09/30/19 21:00 10/01/19 08:37 Lisinopril [Lisinopril] PO 40 mg BID CHRISTINA Administration Non-Formulary Medication 900 mg 09/30/19 21:00 10/01/19 08:37 Oxcarbazepine [Oxcarbazepine] PO 900 mg BID CHRISTINA Administration Non-Formulary Medication 600 mg 09/30/19 21:00 09/30/19 21:37 Quetiapine [Seroquel] PO 600 mg BEDTIME CHRISTINA Administration Non-Formulary Medication 20 mg 10/01/19 09:00 10/01/19 08:36 Simvastatin [Simvastatin] PO 20 mg DAILY CHRISTINA Administration Non-Formulary Medication 1 inh 10/01/19 09:00 10/01/19 08:46 Umeclidinium [Incruse Ellipta] IH 1 inh DAILY CHRISTINA Administration Non-Formulary Medication 10 mg 09/30/19 21:00 09/30/19 21:37 Zolpidem [Ambien] PO 10 mg BEDTIME CHRISTINA Administration Discontinued Medications Generic Name Dose Route Start Last Admin Trade Name Freq PRN Reason Stop Dose Admin Sodium Chloride 1,000 mls @ 1,000 mls/hr 09/30/19 11:44 09/30/19 11:51 Sodium Chloride IV 09/30/19 12:43 1,000 mls/hr BOLUS STA Administration Sodium Chloride 1,000 mls @ 75 mls/hr 09/30/19 16:30 09/30/19 18:07 Sodium Chloride IV 75 mls/hr .[id number] CHRISTINA Administration Assessment (1) Colitis: Status: Acute Code(s): K52.9 - Noninfective gastroenteritis and colitis, unspecified SNOMED Code(s): 68605505 (2) Acute hypotension: Status: Acute Code(s): I95.9 - Hypotension, unspecified SNOMED Code(s): 61324990 (3) Bright red rectal bleeding: Status: Acute Code(s): K62.5 - Hemorrhage of anus and rectum SNOMED Code(s): 51378381 (4) Acute hyponatremia: Status: Acute Code(s): E87.1 - Hypo-osmolality and hyponatremia SNOMED Code(s): 0515122 (5) Depression with anxiety: Status: Acute Code(s): F41.8 - Other specified anxiety disorders SNOMED Code(s): 37936309 (6) Personal history of mental disorder: Status: None SNOMED Code(s): 258570270 (7) Chronic obstructive lung disease: Status: Chronic Code(s): J44.9 - Chronic obstructive pulmonary disease, unspecified SNOMED Code(s): 26979761 (8) Osteoarthritis: Status: Chronic Code(s): M19.90 - Unspecified osteoarthritis, unspecified site SNOMED Code(s): 625062864 (9) Dyslipidemia: Status: Chronic Code(s): E78.4 - Other hyperlipidemia SNOMED Code(s): 099989810 (10) Essential hypertension: Status: Chronic Code(s): I10 - Essential (primary) hypertension SNOMED Code(s): 65651499 (11) Nicotine dependence: Status: Chronic Code(s): F17.200 - Nicotine dependence, unspecified, uncomplicated SNOMED Code(s): 82456194 (12) Tobacco abuse counseling: Status: Acute Code(s): Z71.6 - Tobacco abuse counseling SNOMED Code(s): 840616515 Plan Plan: * Acute Colitis w/ bright rectal bleeding--New onset w/ elevated WBC's likely due to infection and noted rectal bright blood in toilet frequently X 16hr w/weakness & dizziness that are now resolving. Con't Flagyl IV 500mg Q 6hrs & Cipro 500 mg PO BID; PPI IV; IVF replenishment; Clear liquid diet and advance as tolerated avoiding milk/milk products, red dyes, or irritating foods. 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 * Acute Hypotension--New onset now resolving w/ fluid replacement.; Con't NS 100ml/hr.; I&O; Romberg now normal--ambulate in riggs w/ assistance and if gait steady and dizziness resolved, may ambulate w/o assistance. * Acute Hyponatremia--worsened & recurrent w/ high fluid intake at home likely due to Oxcarbazepine; 500ml 24hr fluid restriction w/ Na+ improved this AM. Will complete current IV fluids and d/c w/ 1000ml fluid restriction per 24hrs.; monitor for seizures and signs of hyponatremia; Monitor VS and labs. * Depression w/ Anxiety and Schizo Disorder--slightly worsened w/ hospitalization and constant TV reminders of Kee virus; encourage patient to be up in riggs when stable; continue home meds; continue w/ Dr. Beltrán. * COPD--stable; no exacerbation at present; con't home meds. * Osteoarthritis w/ Chronic Pain--unchanged from home; con't home meds * Dyslipidemia--stable; cont home meds; Heart healthy diet when on regular diet. * Essential HTN---hypotensive 93/60 on admission and now improved to normal; con't home meds as per parameters; monitor VS. * Nicotine Dependence w/ Counseling--unchanged; patient counseled was A/O X4 and has smoked 1PPD X 40 yrs and has no desire to quit smoking despite his COPD and the explanation of risks and complications; he will use nicotine patch while at hospital. * DVT prophylaxis --TEDS refused; not a good candidate for Lovenox or RX d/t bright rectal bleeding. Encouraged to be up and about as tolerated.
[2019-10-01] MEDS ORDERED: CIPRO PO SCH (10:00)
[2019-10-01] MEDS: NON-FORMULARY MEDICATION (Zolpidem [Ambien] 10 MG) PO SCH (21:25)
[2019-10-01] MEDS: QUETIAPINE 600 MG PO SCH (21:25)
[2019-10-01] MEDS: NICODERM 21 MG TD SCH (21:26)
[2019-10-02] MEDS: FLAGYL 500 MG/100 ML 500 MG/100 ML BAG IV SCH ×2 (00:15→06:24)
[2019-10-02] MEDS: CIPRO PO SCH (06:24)
[2019-10-02] MEDS: SODIUM CHLORIDE 1,000 ML IV SCH ×2 (07:56→07:57)
[2019-10-02] MEDS: AMLODIPINE 5 MG PO SCH (08:01)
[2019-10-02] MEDS: OXCARBAZEPINE 900 MG PO SCH (08:01)
[2019-10-02] MEDS: NON-FORMULARY MEDICATION (Lisinopril [Lisinopril] 40 MG) PO SCH (08:01)
[2019-10-02] MEDS: NON-FORMULARY MEDICATION (Simvastatin [Simvastatin] 20 MG) PO SCH (08:01)
[2019-10-02] MEDS: ATOMOXETINE 80 MG PO SCH (08:01)
[2019-10-02] MEDS: UMECLIDINIUM IH SCH (08:02)
[2019-10-02] MEDS: NON-FORMULARY MEDICATION (Clonazepam [Clonazepam] 1 MG) PO SCH (08:08)
--- NOTE | 2019-10-02 08:26 | PCM.DC ---
Final Diagnosis: Acute Colitis w/ Bright Rectal Bleeding (1) Colitis: Status: Acute Code(s): K52.9 - Noninfective gastroenteritis and colitis, unspecified SNOMED Code(s): 13191025 (2) Acute hypotension: Status: Acute Code(s): I95.9 - Hypotension, unspecified SNOMED Code(s): 76428101 (3) Bright red rectal bleeding: Status: Acute Code(s): K62.5 - Hemorrhage of anus and rectum SNOMED Code(s): 39876932 (4) Acute hyponatremia: Status: Acute Code(s): E87.1 - Hypo-osmolality and hyponatremia SNOMED Code(s): 0921119 (5) Depression with anxiety: Status: Acute Code(s): F41.8 - Other specified anxiety disorders SNOMED Code(s): 87336853 (6) Personal history of mental disorder: Status: None SNOMED Code(s): 184256077 (7) Chronic obstructive lung disease: Status: Chronic Code(s): J44.9 - Chronic obstructive pulmonary disease, unspecified SNOMED Code(s): 32253435 (8) Osteoarthritis: Status: Chronic Code(s): M19.90 - Unspecified osteoarthritis, unspecified site SNOMED Code(s): 219201688 (9) Dyslipidemia: Status: Chronic Code(s): E78.4 - Other hyperlipidemia SNOMED Code(s): 356911153 (10) Essential hypertension: Status: Chronic Code(s): I10 - Essential (primary) hypertension SNOMED Code(s): 82804820 (11) Nicotine dependence: Status: Chronic Code(s): F17.200 - Nicotine dependence, unspecified, uncomplicated SNOMED Code(s): 62296174 (12) Tobacco abuse counseling: Status: Acute Code(s): Z71.6 - Tobacco abuse counseling SNOMED Code(s): 299500664 Reason for Hospitalization: Colitis w/ severe hypotension w/ bright red rectal bloody liquid loss [employer]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 Needed monitoring for further blood loss, IVF replacement gently for acute hyponatremia Na+124.4. Patient lives alone and had already fallen once and was too weak to return home w/o supervision as he could deteriorate further. Prognosis at Discharge: Fair to Good; rectal bleeding cause is undetermined and will need GI f-u w/ probable colonoscopy and other testing. All F-U appts are challenged at present due to Covid-19 pandemic. Condition at Discharge: Stable VS w/ labs improved. Will need to return to ER if bright rectal bleeding re-currs. GI assessment currently negative. Medications at Discharge: Ambulatory Orders Medication Instructions Recorded atomoxetine [Strattera] 80 mg PO DAILY #30 11/22/16 clonazepam 1 mg PO TID #90 11/22/16 quetiapine [Seroquel] 600 mg PO BEDTIME #30 11/22/16 zolpidem [Ambien] 10 mg PO BEDTIME #30 11/22/16 peg [id number] [Eye 15 ml BOTHEYES PRN PRN 08/09/17 Drop Tears] albuterol sulfate [Proair Hfa] 90 mcg INHALATION 2 puffs QID PRN 04/10/18 #1 ih nystatin-triamcinolone 15 g TOPICAL QID PRN #1 tb 11/07/18 polyethylene glycol 3350 [Miralax] 1 scp PO DAILY PRN #1 powder 12/02/18 simvastatin 20 mg PO DAILY #30 tab-cap 01/22/19 albuterol sulfate 2.5 mg INHALATION Q4-6H PRN #100 06/04/19 vial oxycodone-acetaminophen 7.5 mg-325 1 tab PO TID PRN 07/07/19 mg tablet lisinopril 40 mg tablet 40 mg PO BID #60 tab 07/13/19 amlodipine 5 mg tablet 5 mg PO DAILY 30 Days #90 tab-cap 09/18/19 Incruse Ellipta 1 inh INHALATION DAILY 09/30/19 naloxone [Narcan] 4 mg INTRANASAL Q2-3M PRN 09/30/19 oxcarbazepine 900 mg PO BID 09/30/19 New home RX: Cipro 500mg PO BID X 3.5 days to complete 5 day therapy; MultiVIT w/ FE 1 tab daily #30 NRF; Omeprazole 40mg PO daily X 30 days. Lab/Diagnostics: Laboratory Results WBC 9.13 K/ul (4.2-10.2) 10/02/19 04:47 RBC 3.84 10^6/ul (4.70-6.10) L 10/02/19 04:47 Hgb 10.8 g/dl (14.0-18.0) L 10/02/19 04:47 Hct 31.0 % (42.0-52.0) L 10/02/19 04:47 MCV 80.7 fl (80.0-94.0) 10/02/19 04:47 MCH 28.1 pg (27.0-31.0) 10/02/19 04:47 MCHC 34.8 (31.8-35.4) 10/02/19 04:47 RDW Coeff of Mackenzie 12.9 % (11.6-14.8) 10/02/19 04:47 Plt Count 173 10^3/uL (140-440) 10/02/19 04:47 Immature Gran % (Auto) 1.0 % (0.0-5.0) 10/02/19 04:47 Neut % (Auto) 65.9 % (42.2-75.2) 10/02/19 04:47 Lymph % (Auto) 20.9 (10.0-50.0) 10/02/19 04:47 Republic % (Auto) 9.0 (0-10) 10/02/19 04:47 Eos % (Auto) 2.5 % (0.0-7.0) 10/02/19 04:47 Baso % (Auto) 0.7 % (0.0-3.0) 10/02/19 04:47 Immature Gran # (Auto) 0.1 (0.0-1.0) 10/02/19 04:47 Neut # (Auto) 6.0 K/ul (2.0-6.9) 10/02/19 04:47 Lymph # (Auto) 1.9 K/uL (0.60-3.4) 10/02/19 04:47 Republic # (Auto) 0.8 K/uL (0.4-2.0) 10/02/19 04:47 Eos # (Auto) 0.2 K/ul (0.0-0.7) 10/02/19 04:47 Baso # (Auto) 0.1 K/uL (0-0.2) 10/02/19 04:47 PT 10.1 SEC (9.3-11.0) 09/30/19 12:00 INR 1.03 SI (0.0-3.9) 09/30/19 12:00 APTT 31.2 SEC (23.9-40.0) 09/30/19 12:00 Sodium 124.4 mmol/L (134.5-145) L 10/02/19 04:47 Potassium 3.60 mmol/L (3.5-5.1) 10/02/19 04:47 Chloride 90.5 mmol/L (98-107) L 10/02/19 04:47 Carbon Dioxide 26.2 mmol/L (22-30.0) 10/02/19 04:47 Anion Gap 11.30 10/02/19 04:47 BUN 5.9 mg/dL (9-20) L 10/02/19 04:47 Creatinine 0.66 mg/dL (0.60-1.10) 10/02/19 04:47 Estimated GFR (MDRD) 127.00 mL/min 10/02/19 04:47 BUN/Creatinine Ratio 8.93 10/02/19 04:47 Glucose 118.6 mg/dL (74-106) H 10/02/19 04:47 Calcium 8.58 mg/dL (8.4-10.2) 10/02/19 04:47 Total Bilirubin 0.18 mg/dL (0.2-1.3) L 10/02/19 04:47 AST 26.9 U/L (17-59) 10/02/19 04:47 ALT 25.9 U/L (0-50) 10/02/19 04:47 Alkaline Phosphatase 69.9 U/L (38-126) 10/02/19 04:47 Total Protein 5.88 g/dL (6.3-8.2) L 10/02/19 04:47 Albumin 3.37 g/dL (3.5-5.0) L 10/02/19 04:47 Globulin 2.51 10/02/19 04:47 Albumin/Globulin Ratio 1.34 10/02/19 04:47 Stl Occult Blood (IFOB) Positive (NEGATIVE) 09/30/19 15:08 Stool Occult Blood #2 No specimen received (NEGATIVE) 09/30/19 15:08 Stool Occult Blood #3 No specimen received (NEGATIVE) 09/30/19 15:08 Blood Type O POSITIVE 09/30/19 17:40 Antibody Screen Negative 09/30/19 17:40 09/30/2019 CT Abd/Pelvis w/ Contrast: IMPRESSION: 1. Findings most consistent with moderate active colitis involving the transverse and descending colon. This is most likely either infectious or inflammatory in nature. Less likely ischemic. 2. Mild atherosclerotic disease. 3. Renal cysts. Education Provided to Patient and Family: Restrict your total intake of ALL liquids to 1000ml per 24 hrs. Avoid milk, milk products, and any foods that irritate your digestive system. Start taking a mulivitamin with iron daily to build up your anemia after the rectal bleeding. Get your sodium level and Blood count checked in 2-4 weeks or sooner if you have any bright red rectal bleeding as prior to your admission. Report to Emergency Room if symptoms return w/ dizziness, weakness, CP, severe abdominal pain or other problems. See handouts. Follow-up with pain management as per their orders. Follow-up w/ [facility] as per their orders. Continue all home medications as prior to admission. Up and about as tolerated in home---follow CDC guidelines and mcc in your home as directed to protect your weakend immune system. Follow-up appt. with Simran Bender APRN, HERMILA LUZ RN Case management, Saturday10/06/2019 @ 930 AM. Follow-ups: F-U w/ Simran Bender APRN, Saturday10/06/2019 9:30AM. F-u w/ pain management as directed. F-u w/ [facility] as directed. Discharge Disposition: Home Hospital Course: Day 1/Admission 09/30/2019 thru 10/01/2019 Jhon Lee is a 49 yo male patient w/ hx Schizophrenia, Depression w/ Anxiety, COPD, HLD, Nicotine Dependence (1PPD X 30yrs), Osteoarthritis, and Chronic Pain who presented to [facility] ER 09/30/2019 11:32 for c/o's dizziness w/ history of falling 09/29/2019 07:30 at home after sitting on toilet to urinate for several minutes causing numbness, tingling, and weakness in both of his BLE. Notes that he rolled forward on his forearms and lower belly w/o hitting his head, LOC, or other known injury. He then got up and had to have a BM, which was moderate amount of bright red liquid w/o blood clots. He then had intermittent episodes occuring as frequently as every 3-4 minutes 12 plus hours. He had no further bleeding, but awakened the AM of admission feeling dizzy when he went to stand up and experienced severe generalized weakness w/ "dangerously low BP when checked by the paramedics. Upon ER arrival he noted diffuse abdominal pain w/ 1-2 episodes of undescribed diarrhea in the ER. He denies F/C, SOB, ZAVALETA, CP, palpitations, swelling, active rectal bleeding, constipation, or diarrhea. His appetite is good w/o N/V, dysuria, or other complaints. CT scan of abd/pelvis w/ contrast revealed findings most consistent with moderate active colitis involving the transverse and descending colon that is most likely either infectious or inflammatory in nature; less likely ischemic; Mild atherosclerotic disease; and Renal cysts. He had one stool in ER that was positive for occult blood and with slightly elevated WBC's 18.8 and mild anemia 13.3/37.2 w/ hydration Creatinine 1.73 and severely abnormal Na+ 116.2 he was admitted for observation w/ Colitis, Hypotension (68/54) w/ dizziness, and bright red rectal bleeding. His treatment was IVF replacement, PPI, Flagyl & Cipro w/ monitoring of labs, VS, and patient status. Day 2 10/01/2019 Patient was beginning to feel much better and continued to press the staff for discharge. It was felt that his sodium improved but not significantly enough to 120.6 w/ slow IVF replenishment and PO fluid restriction of 500ml/24 hrs. Review of previous labs indicated that Na+ had been low approximately 6 mos ago and probably affected by daily home oxycarbazepine & possibly Seroquel. WBC's were also improved at 13.93 w/ H/H lower 11/33.8 and Creatinine improved 1.13 due to rehydration. Patient's appetite was soon improved and VS were mainly stable, but influenced by his erratic mood swings and wanting to be at home not helped by his TV watching of the current viral pandemic. Treatment was only changed to increase him to 1000ml fluid restriction for 24hrs and d/c IVF. Day 3 Patient stable w/ completely negative assessment. Denies any rectal bleeding, BM's, N/V, abdominal pain, or other symptoms. Early AM labs reveal improving to normal WBC's 9.13; H/H 10.8/31.0 w/o any noted blood loss & fluid hydration, and Creatinine now normal 0.66; Na+ close to his normal from 2019 chart review 124.4. BUN has been normal 11.9 to 11.3 to 5.9 prior to d/c. and normal LFT's. 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 Patient is recommended to f-u w/ PCP and seek GI consult for colonoscopy and further w-u MARII or return to ER if bleeding recurs. He will continue on PPI, Cipro 500mg PO BID for 3.5 days (total of 5 days therapy), and MultiVit w/ FE+ daily; CBC and Na+ monitoring in 2-4 weeks or sooner problems. Plan: Acute Colitis w/ bright rectal bleeding--New onset is resolving w/ no rectal bleeding since admission. Will need monitoring of CBC in 2-4 weeks or sooner return of bleeding; RX to complete 5 days Cipro 500mg PO BID given w/ MultiVit w/ Fe+ daily #30; Omerprazole 40mg PO daily #30; 1000ml fluid limit daily and advance diet as tolerated w/ avoidance of irritating foods/drinks; patient to monitor stools for blood or dark tarry stools and alert PCP; F-U w/ PCP as per appt. Case management; Need GI referral for colonoscopy and further evaluation rectal bleeding MARII; return to ER immediately return of similar bright red rectal bleeding. Acute Hypotension--Resolved w/ fluid replacement; Now being treated for his usual HTN. Acute Hyponatremia--improved, but not normal; Will probably need sodium monitoring and consideration of medication change for Schizo Disorder per provider; Has been free of seizures or other hyponatremia symptoms thus far; strict 1000ml 24hr fluid restriction on discharge. Depression w/ Anxiety and Schizo Disorder--slightly worsened at time w/ hospitalization and constant TV reminders of Covid19 pandemic; encourage patient to be up & about at home, watch less TV/News; continue home meds; continue w/ Dr. Beltrán. COPD--unchanged w/o exacerbation at present; con't home meds; needs to stop smoking, but patient is unwilling at this time. Osteoarthritis w/ Chronic Pain--unchanged from home; con't home meds Dyslipidemia--stable; cont home meds; Heart healthy diet. Essential HTN---stable at present with elevations as reported earlier w/ anxiety and delay of discharge. Seems relaxed at discharge and happy to be going home which usually improved the BP to normal levels. Nicotine Dependence w/ Counseling--unchanged; patient counseled was A/O X4 and has smoked 1PPD X 40 yrs and has no desire to quit smoking despite his COPD and the explanation of risks and complications; he refused nicotine patch in hospital. Discharge Disposition: Time 55 minutes for nursing, Case Management, patient education and mental health support w/ discharge time.
[2019-10-02 10:39] VITALS: BP 135/75; TEMP 98
[2019-10-02] MEDS: NICODERM 21 MG TD SCH (10:40)
== END 2019-10-02 12:05 | disposition home or self-care (01) ==
LOC: ED 11:32 → MEDSURG B 11:32
PROVIDERS: ADMIT Nurse Practitioner Family; ATTEND Nurse Practitioner Family
DX: R10.84 Generalized abdominal pain; K62.5 Hemorrhage of anus and rectum; I25.10 Atherosclerotic heart disease of native coronary artery without angina pectoris; I10 Essential (primary) hypertension; D72.829 Elevated white blood cell count, unspecified; K52.9 Noninfective gastroenteritis and colitis, unspecified; M19.90 Unspecified osteoarthritis, unspecified site; E87.1 Hypo-osmolality and hyponatremia; F17.200 Nicotine dependence, unspecified, uncomplicated; G89.29 Other chronic pain; J44.9 Chronic obstructive pulmonary disease, unspecified; F41.8 Other specified anxiety disorders; N28.1 Cyst of kidney, acquired; R42 Dizziness and giddiness; E78.5 Hyperlipidemia, unspecified; I95.9 Hypotension, unspecified; Z86.59 Personal history of other mental and behavioral disorders; R53.1 Weakness